=== PATIENT | female | born 1990 | race Caucasian/White ===

== ENCOUNTER 2019-04-25 11:35 | Emergency (ER) | payer OTHER, SELFPAY ==
[2019-04-25 11:36] VITALS: BP 166/121; PULSE 113; RESP 16; TEMP 36.7; O2SAT 98; BMI 38.7
--- NOTE | 2019-04-25 12:53 | ED.VIS.UPPEX ---
History of Present Illness Chief Complaint: Laceration Informant: Patient Occurred: Today - JPTA Mechanism/Context: Incised - accidentally w/ kitchen knife; dropped it and it cut her in the right small finger Timing: Continuous Quality of Pain: Throbbing Location: R little finger Current Severity: Mild Maximum Severity: Mild Worsened by: palpation/moving Relieved by: remaining still Associated Symptoms: Negative for: Parasthesia, Weakness, Loss of Funtion Narrative: Ejyko-[id number]-[id number]. Last tetanus unknown. Tetanus Immunization: Unknown Past Medical History - Allergies and Home Meds Allergies/Adverse Reactions: Allergies No Known Allergies Allergy (Verified 04/25/19 11:37) Primary Care Physician: Carmen Ramirez PA [Primary Care Provider] - Past Medical History: None Lives: With Family Smoking Status: Current every day smoker Review of Systems Musculoskeletal: Reports: Extremity Pain. Denies: Swelling Skin: Reports: Wounds. Denies: Rash Neurological: Denies: Weakness, Numbness Physical Exam Vital Signs/Narrative: Vital Signs Temp Pulse Resp BP Pulse Ox 04/25/19 11:36 98.1 F 113 H 16 166/121 H 98 General: Well nourished, Well developed Head: Normocephalic, Atraumatic Extremeties: Full range of motion of the right small finger, no other signs of trauma. No bony tenderness. FDS, FDP, extensor intact. Skin: Normal color, No rash, Trauma - 2 cm laceration across the dorsum of the right little finger and onto the ulnar aspect, just proximal to the PIPJ. No tendon exposed. Clean appearing, irregular. Neurological: Alert, Oriented x3, Cranial nerves II-XII grossly intact, Normal Strength, Normal Sensation, Normal Gait Psychological: Normal affect, Normal Mood Diagnostic/Tx/Re-eval - Medical Decision Making Laceration was repaired and cleansed thoroughly. Sutures out in approximately 10 days. Procedures - Lacerations Right small finger Length: 2 cm Depth: Sub Q Shape: Linear - Irregular Prep: Sterile Conditions, Chlorhexadine Laceration repair: Irrigated, Local - 1 cc 1% lidocaine plain, Skin sutures Irrigated (ml): 40 Number of Sutures/[place]: 4 Suture Information: Ethilon, Simple, 5-0 Comment: Tolerated well. No complications. ED Disposition - Plan for ED Patient: Disposition: Home or Assisted Living Diagnosis: Laceration of right little finger w/o foreign body w/o damage to nail Instructions: LACERATION, Hand Referrals: Carmen Ramirez PA [Primary Care Provider] - 10-14 Days suture removal
[2019-04-25] MEDS: Ibuprofen 600 MG Tablet PO (13:04)
== END 2019-04-25 13:06 | disposition home or self-care (01) ==
PROVIDERS: Emergency Provider Emergency Medicine; Family Provider Physician Assistant; PCP Physician Assistant
DX: S61.216A Laceration without foreign body of right little finger without damage to nail, initial encounter (principal); F17.200 Nicotine dependence, unspecified, uncomplicated; W26.0XXA Contact with knife, initial encounter; Y93.89 Activity, other specified; Y92.000 Kitchen of unspecified non-institutional (private) residence as the place of occurrence of the external cause; Y99.8 Other external cause status
CPT/HCPCS: 12001; 99283

== ENCOUNTER 2019-08-20 22:51 | Emergency (ER) | payer OTHER, SELFPAY ==
[2019-08-20 22:52] VITALS: BP 130/74; PULSE 108; RESP 18; TEMP 37.2; O2SAT 99; BMI 36.8
--- NOTE | 2019-08-20 23:05 | ED.VISSUMM ---
- ER Visit Summary Date of Service: 08/20/19 Chief Complaint: Fever and cough History of Present Illness: The patient is a 29 F who presents with fever and cough that began today. Patient states her niece was recently diagnosed with influenza B. Patient states she has had fevers up to 103.2 at home today. Patient admits to some shortness of breath and a cough. Patient denies any sputum production. Patient admits to some nausea and vomiting. Patient admits to generalized myalgias. Patient also admits to a headache. Physical Examination: Vital signs are stable. Patient is afebrile here. Patient is in no acute distress. Oral mucosa is pink and moist. Oropharynx shows some mild postnasal drainage. Neck is supple. Trachea is midline. There is no JVD or lymphadenopathy. Heart was regular rate and rhythm. Lungs are clear and equal bilaterally. Abdomen is soft. Bowel sounds are normal. There is no tenderness. Cranial nerves II through XII are intact. There are no focal motor or sensory deficits noted. Test Results: Influenza swab was obtained and was negative. Emergency Department Course and Treatment: Patient was advised of her results. Patient was instructed to take plenty of fluids. Patient was instructed to continue Tylenol and ibuprofen as needed for any fevers or aches. Patient was instructed to use [id number] decongestants as needed. Patient was instructed to follow-up with her primary care physician in 5 to 7 days. Patient understood and was agreeable with the plan. All questions were answered. Disposition: Discharge home Impression: Viral upper respiratory infection This note was generated with [employer] dictation software. It may contain incorrect words, spelling, and punctuation that were not noted in review of the chart prior to signing ED Disposition - Plan for ED Patient: Disposition: Home or Assisted Living Diagnosis: Viral upper respiratory infection Instructions: URI, Viral, No Abx (Adult) Referrals: Carmen Ramirez PA [Primary Care Provider] - 5-7 Days
== END 2019-08-21 00:08 | disposition home or self-care (01) ==
PROVIDERS: Emergency Provider Emergency Medicine; PCP Physician Assistant
DX: J06.9 Acute upper respiratory infection, unspecified (principal); Z72.0 Tobacco use
CPT/HCPCS: 87804; 99282

== ENCOUNTER 2021-07-18 02:10 | Emergency (ER) | payer OTHER, SELFPAY ==
[2021-07-18 02:13] VITALS: BP 125/68; PULSE 69; RESP 17; TEMP 36.9; O2SAT 98; BMI 37.5
--- NOTE | 2021-07-18 02:18 | EDS_ITS ---
HPI History of Present Illness Chief Complaint: Flank Pain [facility] Medical History Abnormal Pap smear of cervix Endometriosis Right-sided back pain Home Medications ibuprofen 400 mg tablet 800 mg (2 x 400 mg) PO Q8H PRN PRN Pain ##30 02/19/17 [Rx Last Taken Unknown] oxycodone-acetaminophen 5 mg-325 mg tablet 1 tab PO Q6H PRN PRN Pain 3 days #12 TABLETS 07/19/21 [Rx Last Taken Unknown] Allergy/AdvReac Type Severity Reaction Status Date / Time No Known Allergies Allergy Verified 08/28/23 11:20 Surgical History H/O dilation and curettage Previous section S/P laparoscopic assisted vaginal hysterectomy (LAVH) Social History Smoking Status: Current every day smoker tobacco type: e-cigarettes EXAM Physical Exam Const Vital Signs: 07/18/21 02:13 07/18/21 05:16 07/18/21 07:41 Temperature 98.5 F Temperature Source Temporal Pulse Rate 69 78 67 Respiratory Rate 17 18 Blood Pressure 125/68 H 142/78 H 113/70 Blood Pressure Mean 87 99 84 Pulse Ox 98 98 97 Oxygen Delivery Method Room Air Room Air [facility] Lab Data Labs: Laboratory Results - last 24 hr 07/18/21 07/18/21 07/18/21 02:20 02:32 02:32 WBC 10.4 RBC 4.55 Hgb 13.7 Hct 40.0 MCV 87.9 MCH 30.1 MCHC 34.3 RDW Std Deviation 40.4 RDW Coeff of Chaparrita 12.5 Plt Count 312 MPV 9.7 Immature Gran % (Auto) 0.200 Neut % (Auto) 58.9 Lymph % (Auto) 31.2 [place] % (Auto) 6.7 Eos % (Auto) 2.0 Baso % (Auto) 1.0 Absolute Neuts (auto) 6.2 Absolute Lymphs (auto) 3.25 Nucleated RBC % 0 Sodium 136 Potassium 4.0 Chloride 106 Carbon Dioxide 23.0 Anion Gap 7 BUN 13 Creatinine 0.78 Estim Creat Clear Calc 78.13 Est GFR (MDRD) Af Amer 109 Est GFR (MDRD) Non-Af 90 BUN/Creatinine Ratio 16.6 Glucose 122 H Calcium 8.8 Urine Color Yellow Urine Clarity Clear Urine pH 6.0 Ur Specific [place] 1.025 Urine Protein 15 H Urine Glucose (UA) 250 H Urine Ketones Negative Urine Occult Blood Negative Urine Nitrite Negative Urine Bilirubin Negative Urine Urobilinogen Normal Ur Leukocyte Esterase Negative Urine RBC 0 SEEN Urine WBC 0 SEEN Ur Squamous Epith Cells 0-5 SEEN Urine Bacteria 1+ Urine Mucus 1+ Radiography Diagnostic Testing: Clinical Impression(s) from Imaging Studies Abdomen/Pelvis CT 07/18/21 02:18 IMPRESSION: Enlarged right adnexa is suspicious for ovarian torsion. Electronically Signed: Rajiv Rodrigues MD at 3:12 EST , ADDENDUM: 07/18/21 0348 IMPRESSION: Enlarged right adnexa is suspicious for ovarian torsion. N.B. : The above Results were Read Back by Rajiv Rodrigues MD to Rashad Varghese MD, and understanding confirmed on 07/18/2021 03:41:18 (ET). Electronically Signed: Rajiv Rodrigues MD at 3:12 EST , Transvaginal US 07/18/21 03:12 IMPRESSION: The patient is status post hysterectomy. There is no evidence of ovarian torsion. Electronically Signed: Filiberto Barker MD at 8:17 EST , Abdomen/Pelvis CT 07/18/21 07:55 IMPRESSION: The right ovary measures 4.4 cm x 2.8 cm. No mass lesion is seen. The patient is status post hysterectomy. Electronically Signed: Filiberto Barker MD at 8:44 EST , Discharge Plan Triage Chief Complaint: Flank Pain ED Provider: Rashad Canales Dx/Rx/DC Orders Clinical Impression: Back pain Instructions: ED Flank Pain, Uncertain Cause Prescriptions: No Action ibuprofen 400 MG tablet 800 mg PO Q8H PRN PRN (Reason: Pain) Qty: 30 0RF oxycodone-acetaminophen 1 TABLET tablet 1 tab PO Q6H PRN PRN (Reason: Pain) 3 Days Qty: 12 0RF Primary Care Provider: Carmen Ramirez Referrals: Tristen Cantu MD [Non-Staff] - As soon as possible Carmen Ramirez, PA [Primary Care Provider] - Disposition Disposition: Home, Self Care Discharge Date/Time: 07/18/21 09:58
--- NOTE | 2021-07-18 02:18 | CT_ITS ---
We are attempting to reach an attending provider to discuss findings. An addendum with communication details will be sent when the communication is complete. STUDY: CT ABDOMEN AND PELVIS WITHOUT CONTRAST REASON FOR EXAM: Female, 30 years old. Pain RADIATION DOSAGE (If Supplied By Facility): CTDIvol = ( 11.48 ) mGy, DLP = ( 561.96 ) mGycm TECHNIQUE: Transaxial images were obtained from the dome of the diaphragm to the symphysis pubis without oral contrast, and without intravenous contrast. Sagittal and coronal images were reconstructed. Individualized dose optimization techniques were used for this CT. COMPARISON: None. FINDINGS: The visualized lung bases are unremarkable. The visualized portions of the heart are within normal limits. Normal liver. Normal gallbladder and extrahepatic biliary system. Normal spleen. Normal pancreas. Normal bilateral adrenal glands. Normal right kidney. Normal left kidney. Normal visualized stomach. Normal small intestine. Normal colon. The appendix is visualized and appears normal. Normal abdominal aorta. Normal inferior vena cava. Normal retroperitoneum. Normal urinary bladder. 6.5 x 2.4 x 3.5 cm right adnexa. Uterus is not well seen. There is a small umbilical hernia containing fat. Normal thoracolumbar vertebral alignment. CT/Abdomen/Pelvis without Cont IMPRESSION: Enlarged right adnexa is suspicious for ovarian torsion. Electronically Signed: Rajiv Rodrigues MD at 3:12 EST ,
[2021-07-18] MEDS: 0.9% Normal Saline 1,000 ML 125 ML IV (02:34)
[2021-07-18] MEDS: Ondansetron 4 MG/2 ML Vial IV (02:34)
[2021-07-18] MEDS: Morphine 4 MG/ML Syringe IV ×3 (02:35→07:54)
[2021-07-18] MEDS: Ketorolac 30 MG/ML Syringe IV (02:35)
[2021-07-18 02:40] LABS: Red Blood Cells-Urine 0 SEEN /hpf (0-5); White Blood Cells 0 SEEN /hpf (0-5)
[2021-07-18 02:41] LABS: Absolute Lymphocyte Count 3.25 X10^3/uL (0.83-4.51); Absolute Neutrophil Count 6.2 X10^3/uL (2.0-7.7); Eosinophil# 0.21 X10^3/uL; Hemoglobin 13.7 g/dL (12.0-15.0); Lymphocyte # 3.25 X10^3/ul (0.83-4.51); Lymphocyte % 31.2 % (19-41); Mean Corp Hgb Conc 34.3 g/dL (32-36); Mean Corpuscular Hgb 30.1 pg (27.0-32.0); Mean Corpuscular Volume 87.9 fL (81-99); Mean Platelet Vol. 9.7 fl (6.2-12.0); Monocyte% 6.7 % (0-10); NRBC Flagged by Analyzer 0 % (0-5); Neutrophil # 6.15 X10^3/uL (2.7-7.7); Neutrophil % 58.9 % (47-70); Platelet Count 312 K/mm3 (150-450); RBC Distribution Width CV 12.5 % (11.6-14.6); RBC Distribution Width SD 40.4 fl (35.1-43.9); Red Blood Count 4.55 M/mm3 (4.2-5.4); White Blood Count 10.4 K/mm3 (4.4-11.0)
[2021-07-18 02:41] LABS: Color, Urine Yellow (Yellow); Glucose, Dipstick 250 mg/dl (Normal); Ketone-Dipstick Negative (Negative); Leukocyte Esterase-Dipstick Negative /ul (Negative); Nitrite-Dipstick Negative (Negative); Occult Blood-Urine Negative /ul (Negative); Protein-Dipstick 15 mg/dl (Negative); Specific Gravity, Urine 1.025 (1.002-1.030); Urine Bilirubin Dipstick Negative (Negative); Urine Clarity Clear (Clear); Urine Urobilinogen Normal (Normal)
[2021-07-18 02:48] LABS: Bacteria 1+ /hpf (None Seen); Mucous, Urine 1+ /hpf (<or=2+); Squamous Epithelial Cells - UA 0-5 SEEN /hpf (5-10)
[2021-07-18 02:55] LABS: Anion Gap 7 (5-15); BUN 13 mg/dL (7-18); BUN/Creat Ratio 16.6 RATIO (10-20); Calcium,Total 8.8 mg/dL (8.5-10.1); Chloride 106 mmol/L (98-107); Creatinine, Serum 0.78 mg/dL (0.55-1.02); EST Glomerular Filtration Rate 90 mL/min (>60); Est Glom Filt Rate - Afr Amer 109 mL/min (>60); Estimated Creatinine Clearance 78.13 ml/min; Glucose 122 mg/dL (74-106); Sodium Level 136 mmol/L (136-145)
--- NOTE | 2021-07-18 03:12 | US_ITS ---
STUDY: ULTRASOUND OF THE FEMALE PELVIS - COMPLETE REASON FOR EXAM: Female, 30 years old. Flank pain -- rule out ovarian torsion LMP: The patient is status post hysterectomy. TECHNIQUE: Transvaginal TECHNICAL QUALITY: Adequate. COMPARISON: None. FINDINGS: The patient is status post hysterectomy. The right ovary is visualized. The right ovary measures 4.7 cm x 4.4 cm x 2.3 cm. There is no right ovarian cyst or ovarian mass. There is no visualized right adnexal mass or complex lesion. There is normal arterial and normal venous vascularity. The left ovary is visualized. The left ovary measures 3.7 cm x 3.2 cm x 2.4 cm. There is no left ovarian cyst or ovarian mass. There is no visualized left adnexal mass or complex lesion. There is normal arterial and normal venous vascularity. There is no fluid in the cul-de-sac. US/Transvaginal Non- IMPRESSION: The patient is status post hysterectomy. There is no evidence of ovarian torsion. Electronically Signed: Filiberto Barker MD at 8:17 EST ,
[2021-07-18 05:16] VITALS: BP 142/78; PULSE 78; O2SAT 98
--- NOTE | 2021-07-18 07:08 | PN.OBGYN_ITS ---
Objective Data Objective Data Vital Signs: Vital Signs Temp Pulse Resp BP Pulse Ox 98.5 F 78 17 142/78 H 98 07/18/21 02:13 07/18/21 05:16 07/18/21 02:13 07/18/21 05:16 07/18/21 05:16 Oxygen Delivery Method Room Air Weight: 198 lb 13.711 oz Body Mass Index (BMI) 37.5 Lab / Micro Data Result Diagrams: 07/18/21 02:32 07/18/21 02:32 Labs: Laboratory Results - last 24 hr 07/18/21 02:20: Urine Color Yellow, Urine Clarity Clear, Urine pH 6.0, Ur Specific [place] 1.025, Urine Protein 15 H, Urine Glucose (UA) 250 H, Urine Ketones Negative, Urine Occult Blood Negative, Urine Nitrite Negative, Urine Bilirubin Negative, Urine Urobilinogen Normal, Ur Leukocyte Esterase Negative, Urine RBC 0 SEEN, Urine WBC 0 SEEN, Ur Squamous Epith Cells 0-5 SEEN, Urine Kourtney teria 1+, Urine Mucus 1+ 07/18/21 02:32: WBC 10.4, RBC 4.55, Hgb 13.7, Hct 40.0, MCV 87.9, MCH 30.1, MCHC 34.3, RDW Std Deviation 40.4, RDW Coeff of Chaparrita 12.5, Plt Count 312, MPV 9.7, Immature Gran % (Auto) 0.200, Neut % (Auto) 58.9, Lymph % (Auto) 31.2, [place] % (Auto) 6.7, Eos % (Auto) 2.0, Baso % (Auto) 1.0, Absolute Neuts (auto) 6.2, Absolute Lymphs (auto) 3.25, Nucleated RBC % 0 07/18/21 02:32: Sodium 136, Potassium 4.0, Chloride 106, Carbon Dioxide 23.0, Anion Gap 7, BUN 13, Creatinine 0.78, Estim Creat Clear Calc 78.13, Est GFR (MDRD) Af Amer 109, Est GFR (MDRD) Non-Af 90, BUN/Creatinine Ratio 16.6, Glucose 122 H, Calcium 8.8 Micro: Microbiology 07/18/21 06:22 Nasal Secretion SARS-CoV-2 Antigen (Rapid) - Final Radiography Diagnostic Testing: Radiology Impression Abdomen/Pelvis CT 07/18/21 02:18 IMPRESSION: Enlarged right adnexa is suspicious for ovarian torsion. Electronically Signed: Rajiv Rodrigues MD at 3:12 EST , ADDENDUM: 07/18/21 0348 IMPRESSION: Enlarged right adnexa is suspicious for ovarian torsion. N.B. : The above Results were Read Back by Rajiv Rodrigues MD to Rashad Varghese MD, and understanding confirmed on 07/18/2021 03:41:18 (ET). Electronically Signed: Rajiv Rodrigues MD at 3:12 EST , Assessment & Plan (1) Right-sided back pain: QUALIFIERS: Chronicity: acute Sciatica presence: without sciatica PLAN: opened in error - please see H&P
--- NOTE | 2021-07-18 07:14 | PCM.HP.STD ---
HPI - General HPI Narrative KIKI TOLEDO, is a 30 F who presents Patient presented to ED with right back pain that woke her from sleep. She thought she was passing a kidney stone as she had one in the past. She has nausea but no vomiting. Her pain is currently a 3 after medication but has been as bad as a 9/10. Also the nausea medication has helped. She currently points to an area in her mid lower back as the area of pain and also reports RLQ pain. Patient states she has always had some mild RLQ pain but this is more severe. She denies urinary concerns or fevers/chills. [facility] Medical History (Updated 07/18/21 @ 07:[address] Marck Varela MD) Abnormal Pap smear of cervix Endometriosis Right-sided back pain Home Medications ibuprofen 800 mg PO Q8H PRN PRN #30 tablet 02/19/17 [Rx Last Taken Unknown] Allergy/AdvReac Type Severity Reaction Status Date / Time No Known Allergies Allergy Verified 07/18/21 02:17 Surgical History (Updated 07/18/21 @ 07:[address] Marck Varela MD) H/O dilation and curettage Previous section S/P laparoscopic assisted vaginal hysterectomy (LAVH) Social History Smoking Status: Current every day smoker tobacco type: e-cigarettes Vital Signs Vital Signs Vital Signs: 07/18/21 02:13 07/18/21 05:16 Temperature 98.5 F Temperature Source Temporal Pulse Rate 69 78 Respiratory Rate 17 Blood Pressure 125/68 H 142/78 H Blood Pressure Mean 87 99 Pulse Ox 98 98 Oxygen Delivery Method Room Air Weight Weight: 198 lb 13.711 oz Body Mass Index (BMI) 37.5 Physical Exam Const alert, oriented x3 and no apparent distress HEENT head/scalp atraumatic Resp normal respiratory effort GI soft to palpation and non-distended GI Narrative: right mid to lower back and right lower quadrant mild tenderness, no rebound or guarding PELVIC: right adnexal tenderness (mild)with mass, no left adnexal tenderness or mass, uterus surgically absent Neuro CN's II-XII intact bilaterally Results Lab / Micro Data Result Diagrams: 07/18/21 02:32 07/18/21 02:32 Labs: Laboratory Results - last 24 hr 07/18/21 02:20: Urine Color Yellow, Urine Clarity Clear, Urine pH 6.0, Ur Specific [place] 1.025, Urine Protein 15 H, Urine Glucose (UA) 250 H, Urine Ketones Negative, Urine Occult Blood Negative, Urine Nitrite Negative, Urine Bilirubin Negative, Urine Urobilinogen Normal, Ur Leukocyte Esterase Negative, Urine RBC 0 SEEN, Urine WBC 0 SEEN, Ur Squamous Epith Cells 0-5 SEEN, Urine Bacteria 1+, Urine Mucus 1+ 07/18/21 02:32: WBC 10.4, RBC 4.55, Hgb 13.7, Hct 40.0, MCV 87.9, MCH 30.1, MCHC 34.3, RDW Std Deviation 40.4, RDW Coeff of Chaparrita 12.5, Plt Count 312, MPV 9.7, Immature Gran % (Auto) 0.200, Neut % (Auto) 58.9, Lymph % (Auto) 31.2, [place] % (Auto) 6.7, Eos % (Auto) 2.0, Baso % (Auto) 1.0, Absolute Neuts (auto) 6.2, Absolute Lymphs (auto) 3.25, Nucleated RBC % 0 07/18/21 02:32: Sodium 136, Potassium 4.0, Chloride 106, Carbon Dioxide 23.0, Anion Gap 7, BUN 13, Creatinine 0.78, Estim Creat Clear Calc 78.13, Est GFR (MDRD) Af Amer 109, Est GFR (MDRD) Non-Af 90, BUN/Creatinine Ratio 16.6, Glucose 122 H, Calcium 8.8 Micro: Microbiology 07/18/21 06:22 Nasal Secretion SARS-CoV-2 Antigen (Rapid) - Final Radiology Impression Abdomen/Pelvis CT 07/18/21 02:18 IMPRESSION: Enlarged right adnexa is suspicious for ovarian torsion. Electronically Signed: Rajiv Rodrigues MD at 3:12 EST , ADDENDUM: 07/18/21 3334 IMPRESSION: Enlarged right adnexa is suspicious for ovarian torsion. N.B. : The above Results were Read Back by Rajiv Rodrigues MD to Rashad Varghese MD, and understanding confirmed on 07/18/2021 03:41:18 (ET). Electronically Signed: Rajiv Rodrigues MD at 3:12 EST , Assessment & Plan Assessment/Plan (1) Right-sided back pain: QUALIFIERS: Chronicity: acute Sciatica presence: without sciatica PLAN: Concern for possible ovarian torsion on CT. Patient with mild tenderness on exam but no rebound/guarding. Pelvic US shows right ovary measuring just less than 5cm with normal blood flow on prelim read. Based on this information patient does not have evidence of ovarian torsion or gynecologic concern to proceed with surgery at this time. This was discussed with both (ED), the patient & (taking over [facility] ob/gyn doctor call). may further evaluate her pain in the ED. Patient is to update the office later today. Await final US read. COVID negative
[2021-07-18 07:41] VITALS: BP 113/70; PULSE 67; RESP 18; O2SAT 97
--- NOTE | 2021-07-18 07:55 | CT_ITS ---
STUDY: CT ABDOMEN AND PELVIS WITH CONTRAST REASON FOR EXAM: Female, 30 years old. Right flank pain RADIATION DOSAGE (If Supplied By Facility): CTDIvol = ( 13.98 ) mGy, DLP = ( 878.86 ) mGycm TECHNIQUE: Transaxial images were obtained from the dome of the diaphragm to the symphysis pubis without oral contrast. IV 100mL [id number]-[id number] was administered. Sagittal and coronal images were reconstructed. Individualized dose optimization techniques were used for this CT. COMPARISON: Comparison is made with prior examination done earlier today without intravenous contrast. FINDINGS: The visualized lung bases are unremarkable. The visualized portions of the heart are within normal limits. There is decreased attenuation of the liver consistent with steatosis. Normal gallbladder and extrahepatic biliary system. Normal spleen. Normal pancreas. Normal bilateral adrenal glands. Normal right kidney. Normal left kidney. Normal visualized stomach. Normal small intestine. Normal colon. The appendix is visualized and appears normal. Normal abdominal aorta. Normal inferior vena cava. Normal retroperitoneum. Normal urinary bladder. The right ovary measures 4.4 cm x 2.8 cm. The patient is status post hysterectomy. Normal abdominal wall. Normal osseous structures. CT/Abdomen/Pelvis W IV Cont ONLY IMPRESSION: The right ovary measures 4.4 cm x 2.8 cm. No mass lesion is seen. The patient is status post hysterectomy. Electronically Signed: Filiberto Barker MD at 8:44 EST ,
[2021-07-18 08:55] LABS: AST(SGOT) 22 U/L (15-37); Alanine Aminotransfer ALT/SGPT 33 U/L (13-56); Albumin, Serum 3.6 g/dL (3.2-5.0); Alkaline Phosphatase 63 U/L (45-117); Globulin 3.6 g/dL (2.2-4.2); Protein, Total 7.2 g/dL (6.4-8.2)
[2021-07-18 09:09] VITALS: BP 111/67; PULSE 53; RESP 13; O2SAT 99
[2021-07-18 09:57] VITALS: BP 160/56; PULSE 63; RESP 18
== END 2021-07-18 09:58 | disposition home or self-care (01) ==
PROVIDERS: Emergency Provider Emergency Medicine; PCP Physician Assistant; Visit Provider Emergency Medicine
DX: M54.9 Dorsalgia, unspecified (principal); R11.0 Nausea; F17.290 Nicotine dependence, other tobacco product, uncomplicated
CPT/HCPCS: 74176; 74177; 76830; 80048; 80076; 81001; 85025; 87426; 93976; 96374; 96375; 96376; 99283; J7030; Q9967; A4216; J2405

== ENCOUNTER 2021-07-19 10:45 | Day surgery (SDC) | payer OTHER, SELFPAY ==
[2021-07-19] VITALS (8 sets, daily range): BP systolic 92–146; BP diastolic 56–66; PULSE 63–96; RESP 14–18; TEMP 36.1–37.8; O2SAT 92–98; BMI 36.2
[2021-07-19] MEDS: Ondansetron 4 MG/2 ML Vial IV (11:15)
[2021-07-19] MEDS: HYDROmorphone 0.5 MG/0.5 ML SYRINGE IV (11:15)
[2021-07-19] MEDS: 0.9% Normal Saline 1,000 ML 1000 ML IV (11:16)
[2021-07-19 11:32] LABS: Absolute Neutrophil Count 10.9 X10^3/uL (2.0-7.7); Basophil# 0.07 X10^3/uL; Basophil% 0.5 % (0-1); Eosinophil# 0.14 X10^3/uL; Hematocrit 41.9 % (37-47); Hemoglobin 14.7 g/dL (12.0-15.0); Lymphocyte % 14.3 % (19-41); Mean Corp Hgb Conc 35.1 g/dL (32-36); Mean Corpuscular Hgb 31.3 pg (27.0-32.0); Mean Corpuscular Volume 89.3 fL (81-99); Mean Platelet Vol. 9.9 fl (6.2-12.0); Monocyte# 0.78 X10^3/uL; Monocyte% 5.6 % (0-10); NRBC Flagged by Analyzer 0 % (0-5); Neutrophil # 10.89 X10^3/uL (2.7-7.7); Neutrophil % 78.1 % (47-70); Platelet Count 322 K/mm3 (150-450); RBC Distribution Width CV 12.6 % (11.6-14.6); RBC Distribution Width SD 41.4 fl (35.1-43.9); Red Blood Count 4.69 M/mm3 (4.2-5.4)
[2021-07-19 11:44] LABS: AST(SGOT) 14 U/L (15-37); Alanine Aminotransfer ALT/SGPT 28 U/L (13-56); Albumin, Serum 3.6 g/dL (3.2-5.0); Alkaline Phosphatase 70 U/L (45-117); Anion Gap 4 (5-15); BUN 7 mg/dL (7-18); BUN/Creat Ratio 9.7 RATIO (10-20); Calcium,Total 8.7 mg/dL (8.5-10.1); Chloride 105 mmol/L (98-107); Creatinine, Serum 0.72 mg/dL (0.55-1.02); EST Glomerular Filtration Rate 99 mL/min (>60); Est Glom Filt Rate - Afr Amer 120 mL/min (>60); Estimated Creatinine Clearance 84.65 ml/min; Globulin 3.6 g/dL (2.2-4.2); Glucose 92 mg/dL (74-106); Potassium 3.9 mmol/L (3.5-5.1); Protein, Total 7.2 g/dL (6.4-8.2); Sodium Level 136 mmol/L (136-145)
--- NOTE | 2021-07-19 12:18 | ED.RN ---
Dr. Lopez in to see this patient.
--- NOTE | 2021-07-19 12:29 | EDS_ITS ---
HPI HPI - GI History of Present Illness Chief Complaint: Flank Pain Narrative Narrative: 30-year-old female presenting with acute onset right pelvic pain which has been intermittent for the last 24 hours. Patient was seen yesterday in the ED for evaluation initially thought this was a kidney stone. At that point she reports that she had flank pain on the right. Patient had urinalysis and blood work performed which was normal. She had a CT of the abdomen pelvis without contrast which showed concern for ovarian torsion. Transvaginal ultrasound was performed after this which was negative. Patient was evaluated by gynecology yesterday and it was felt that this was not a torsion. Patient subsequently had a CT of the abdomen pelvis with IV contrast. On both CAT scans the appendix was visualized and was normal. There were no other acute findings. Patient was discharged home. She returns today with pain that has been more persistent and in the right pelvis. She does admit that she has had some nausea and vomiting associated with this. She denies vaginal bleeding or vaginal complaints. Patient does state that she is status post partial hysterectomy. She has both ovaries. [facility] Medical History Abnormal Pap smear of cervix Endometriosis Right-sided back pain Home Medications ibuprofen 800 mg PO Q8H PRN PRN #30 tablet 02/19/17 [Rx Last Taken Unknown] oxycodone-acetaminophen 1 tab PO Q6H PRN PRN 3 Days #12 tablet 07/18/21 [Rx Last Taken Unknown] Allergy/AdvReac Type Severity Reaction Status Date / Time No Known Allergies Allergy Verified 07/19/21 10:49 Surgical History H/O dilation and curettage Previous section S/P laparoscopic assisted vaginal hysterectomy (LAVH) Social History Smoking Status: Current every day smoker tobacco type: e-cigarettes ROS ROS ED Constitutional Constitutional ED: Denies chills, fever(s) or sweats ENT ENT ED: Denies rhinorrhea or sore throat Cardiovascular Cardiovascular: Denies chest pain or palpitations Respiratory/Chest Respiratory/Chest: Denies cough or dyspnea Gastrointestinal Gastrointestinal: Reports abdominal pain, nausea and vomiting Genitourinary Genitourinary ED: Denies dysuria or hematuria Musculoskeletal Musculoskeletal: Denies arthralgias or myalgias Integumentary Denies rash Neurologic Neurologic: Denies headache(s) or weakness Psychiatric Psychiatric: Denies anxiety or depression EXAM Physical Exam Const Vital Signs: 07/19/21 10:46 07/19/21 11:11 Temperature 97.0 F L Temperature Source Temporal Pulse Rate 96 Respiratory Rate 14 Respiratory Effort Normal Blood Pressure 146/63 H Blood Pressure Mean 90 Pulse Ox 97 Oxygen Delivery Method Room Air Positive obese; Negative for well nourished Constitutional Narrative: Appears to be in pain General Appearance ED: NAD; Negative for pallor Nutritional Appearance: obese HEENT normocephalic and atraumatic Eyes PERRL and EOMs intact bilaterally Resp normal respiratory effort and clear to auscultation bilaterally Cardio regular rate and regular rhythm GI Palpation: tender RLQ Back/Spine no CVA tenderness Neuro Sensorium / Orientation: alert, oriented to person, oriented to place and oriented to time Psych mental status grossly normal and thought process normal Skin no wounds General Skin Exam: Negative for jaundice or pallor MDM MDM MDM Narrative Medical decision making narrative: Review the medical record supports patient's history. She is has been persistent pain in the right lower pelvis today. After reviewing the images and lab work I did repeat basic labs and today she does have a 14,000 white count. CMP within normal limits. Patient given Dilaudid and Zofran for pain. I have concern that she has had intermittent torsion and now the pain is persistent. Ultrasound is not in today and would need to be called in which would delay the patients care. I spoke with Dr. Walters who came to evaluate the patient at bedside in the ED. Currently the plan is to take the patient to the OR for laparotomy to rule out ovarian torsion. Impression: 1. Ovarian Torsion Lab Data Labs: Laboratory Results - last 24 hr 07/19/21 07/19/21 11:15 11:15 WBC 14.0 H RBC 4.69 Hgb 14.7 Hct 41.9 MCV 89.3 MCH 31.3 MCHC 35.1 RDW Std Deviation 41.4 RDW Coeff of Chaparrita 12.6 Plt Count 322 MPV 9.9 Immature Gran % (Auto) 0.500 Neut % (Auto) 78.1 H Lymph % (Auto) 14.3 L Mckenzie % (Auto) 5.6 Eos % (Auto) 1.0 Baso % (Auto) 0.5 Absolute Neuts (auto) 10.9 H Absolute Lymphs (auto) 2.00 Nucleated RBC % 0 Sodium 136 Potassium 3.9 Chloride 105 Carbon Dioxide 27.0 Anion Gap 4 L BUN 7 Creatinine 0.72 Estim Creat Clear Calc 84.65 Est GFR (MDRD) Af Amer 120 Est GFR (MDRD) Non-Af 99 BUN/Creatinine Ratio 9.7 L Glucose 92 Calcium 8.7 Total Bilirubin 0.50 AST 14 L ALT 28 Alkaline Phosphatase 70 Total Protein 7.2 Albumin 3.6 Globulin 3.6 Albumin/Globulin Ratio 1.0 Discharge Plan Triage Chief Complaint: Flank Pain ED Provider: Donnie Dalton Dx/Rx/DC Orders Prescriptions: No Action ibuprofen 400 MG tablet 800 mg PO Q8H PRN PRN (Reason: Pain) Qty: 30 RF: 0 oxycodone-acetaminophen [oxycodone-acetaminophen] 1 TABLET tablet 1 tab PO Q6H PRN PRN (Reason: Pain) 3 Days Qty: 12 RF: 0 Primary Care Provider: Carmen Ramirez
--- NOTE | 2021-07-19 12:31 | ED.RN ---
Mother, Negra, to be contacted following surgery, phone number [phone]
--- NOTE | 2021-07-19 12:33 | ED.RN ---
No covid test collected due to having negative test performed 2/4 in ED, Dr. Lopez confirmed unnecessary..
--- NOTE | 2021-07-19 12:33 | PCM.HP.BLA ---
History and Physical Date of Admission: 07/19/21 Tri is a [id number] fema who presented with 2 days of intermittent sharp right lower quadrant pain. It began out of the blue on grain blender of 07/18/2021. She arrived to the emergency room and was evaluated by CAT scan. She was shown to have an enlarged right ovary. She then was evaluated by Dr. Varela felt her pain was mild to moderate and did not indicate torsion. She had a pelvic ultrasound that showed flow to both ovaries. The patient was discharged home and arrived back this morning complaining of intermittent crescendoing and decrescendo in pain. Is worse when she stands up. Is not worse after she eats. She does not have an appetite. She denies any nausea vomiting or diarrhea. She denies any fevers or chills. She denies any hematuria. Patient states she is never had pain quite like this before. She is status post hysterectomy approximately 4-1/2 years ago. Both ovaries remain. Past medical history is significant for abnormal Pap smears. Past surgical history significant for D&Cs for miscarriages, 3 sections, and an laparoscopic-assisted vaginal hysterectomy Social history positive for tobacco use Allergies no known drug allergies Physical exam: See vitals Awake, alert, no acute distress but does appear to be in pain with straining her abdominal muscles to sit up. Skin is warm dry and intact Lungs clear to auscultation bilaterally Heart S1-S2 regular rate and rhythm Abdomen soft, nondistended, no masses, some rebound and guarding in the right lower quadrant. No CVA or flank tenderness. COMFORT STATION ATTENDANT exam: Normal external genitalia, normal introitus. Vagina is normal length with normal rugae and cuff is intact. There is a fullness against the vaginal cuff on the right side that is exquisitely tender. CT scans and ultrasound from yesterday were reviewed. Labs are reviewed. Assessment & Plan Assessment/Plan (1) Right lower quadrant pain: PLAN: Though the pelvic ultrasound yesterday showed both blood flow to both ovaries, clinically suspicious for right ovarian torsion. Risk benefits alternatives to diagnostic laparoscopy with reversal of torsion or possible right oophorectomy were discussed with the patient, questions were answered to her satisfaction she desires to proceed. Understands I do not see any source of pain will evaluate appendix and though CT was negative, will double check this in surgery. Patient's questions were answered to her satisfaction she desires to proceed. (2) Torsion of right ovary:
--- NOTE | 2021-07-19 13:30 | OV_PTH ---
PATIENT: KIKI TOLEDO [place] [facility] [place][id number] AGE/SX: 30/F ROOM: RE07/19/[address]: Dr. Barbara Walters MD : 1990 BED: DIS: 07/19/2021 SPEC #: [id number] RECD: 07/21/21 07:21 STATUS: ESMER EDMONDS #: [id number] FADY: 07/19/21 13:[address]: Barbara Walters DEPT: SURGICAL PATHOLOGY RECD BY: Ruth Cooper ENTERED: 07/21/21 07:56 SP TYPE: OVARY OTHR DR: STANLEY Correia Tissues: Right ovary Procedures: Surgery Specimen Level IV HEADER OPERATION: Right oophorectomy PRE-OP DIAGNOSIS: Right lower quadrant pain, right ovarian torsion TISSUE SUBMITTED: Right ovary MICROSCOPIC DIAGNOSIS Right ovary, oophorectomy: Ovary with extensive hemorrhage, consistent with clinical diagnosis of ovarian torsion. SJ:eveline 07/22/2021 MICROSCOPIC DESCRIPTION Slides are reviewed. GROSS DESCRIPTION Received in fixative is one container labeled with the patient's name and designated right ovary. The specimen consists of a previously, partially opened hemorrhagic ovary and detached blood clots weighing 45.5 gm. The ovary measures 6 x 5 x 4 cm and detached blood clots measure in aggregate 3 x 2 x 1 cm. Sections reveal hemorrhagic cut surfaces. No mass lesion is identified. Servicenow Administrator sections are submitted in four cassettes. / SJ:eveline 07/21/2021 TC:5 CPT: 73699
[2021-07-19] MEDS: Bupivacaine Mpf 0.5% 30 ML VIAL (14:30)
--- NOTE | 2021-07-19 14:31 | PCM.OPRPT ---
Problems Associated Problem List Diagnoses (1) Torsion of right ovary: (2) Right lower quadrant pain: Report of Operation Date of Procedure: 07/19/21 Pre-Operative Diagnosis: RLQ pain, right ovarian torsion Post-Operative Diagnosis: same Surgery/Procedure Performed:: Laparoscopic right oophorectomy Description of Surgical Findings:: enlarged hemorrhagic right ovary torsed on pedicle once, normal-appearing appendix, left ovary and remainder of peritoneal cavity. Surgeon: Barbara Walters marketing communications leader: Madelaine Vargas Type of Anesthesia: General Anesthesiologist: Kim Garcia Special Medications: none Specimen's removed: right ovary Drains: non Estimated Blood Loss (mL): 30 Fluids Replaced: 1000 Description of Procedure: The patient was taken to the operating room where she was prepped and draped in the dorsolithotomy position. A sponge stick was placed in the vagina. Attention was turned to the abdomen. All port sites were infiltrated with 0.5% Marcaine before skin incisions were made. A 5 mm [intraumbilical] incision was made. The anterior abdominal wall was tented up with 2 towel clamps while a 5 mm blade less trocar and sleeve were [directly inserted]. Intraperitoneal placement was confirmed with the laparoscope. The pneumoperitoneum was created and the underlying abdominal contents were intact. The patient was placed in Trendelenburg. Right and left lower quadrant ports were placed under direct visualization lateral to the inferior epigastric vessels. The bowel was swept away and the above findings were noted. The right ovary is noted to be torsed on its pedicle, it was dark, hemorrhagic and engorged. It was untwisted and the pedicle was coagulated off. Decision was made to move the ovary. The LigaSure device was used to clamp, seal and transect the infundibulopelvic ligament. The ureter was identified and seen peristalsing well below the labeled level of the pedicle before this was performed. The pedicle was hemostatic. The umbilical port incision was extended with sharp and blunt dissection and the Endo Catch bag was placed through the port and the ovary was placed inside of it. The ovary was brought in the bag through the incision. The fascia was closed with an 0 Vicryl suture for the umbilical port only. Skin incisions were then closed by the SOCIAL AND POLITICAL STUDIES PROFESSOR with me present in the operating suite. The pedicles were again examined and found to be hemostatic. The lateral ports were removed under direct visualization and no active bleeding was noted. The pneumoperitoneum was released. The skin incisions were closed with skin glue. The vaginal instruments were removed and the vaginal sweep was completed by me. The procedure was performed by me with assistance other than as dictated above. All sponge and needle counts were correct and the patient was taken to the recovery room in stable condition. Specimen is right ovary. Grafts/Implants Used: none Procedure Start Time: 13:58 Procedure Stop Time: 14:36 Complications none Admit VTE Documentation VTE Present on Admission: No VTE Mechan Device Prophylaxis: None VTE Pharm Prophylaxis ordered?: No
--- NOTE | 2021-07-19 14:42 | PCM.DC ---
Discharge Instructions Diet Discharge Diet: No restrictions Activity May resume sexual activity in: 1 week Dressing / Incision Call your doctor if your incision/area has: Sudden Increased Bleeding and Foul Smelling Discharge Call your doctor if you observe: Fever of 101 or Higher Cleanse incision/area with: Soap & Water (Your incisions have skin glue and it can get wet. Leave on until it falls off) Follow Up Care Please Follow Up With: Barbara Walters MD When: In my office or virtual visit in 1-2 weeks or as needed Test Results: Test results from this visit will be discussed in further detail at your follow-up appointment, if applicable. Discharge Plan Admission Primary Reason for Your Visit: right ovarian torsion, surgical removal of right ovary Attending Provider: Barbara Walters Primary Care Provider: Carmen Ramirez Discharge Orders/Prescriptions Prescriptions: Continued ibuprofen 400 MG tablet 800 mg PO Q8H PRN PRN (Reason: Pain) Qty: 30 RF: 0 oxycodone-acetaminophen 1 TABLET tablet 1 tab PO Q6H PRN PRN (Reason: Pain) 3 Days Qty: 12 RF: 0 Referrals / Follow Up: Carmen Ramirez PA [Primary Care Provider] - Disposition Disposition (needs filled in before D/C Order can be placed): Home, Self Care
== END 2021-07-19 23:59 | disposition home or self-care (01) ==
LOC: ED 11:16 → SDC 13:15
PROVIDERS: Emergency Provider Student in an Organized Health Care Education/Training Program; PCP Physician Assistant; Visit Provider Obstetrics & Gynecology
PROC: (CPT 49320; principal; 2021-07-19 13:30)
DX: N83.511 Torsion of right ovary and ovarian pedicle (principal); F17.290 Nicotine dependence, other tobacco product, uncomplicated; E66.9 Obesity, unspecified; Z68.36 Body mass index [BMI] 36.0-36.9, adult; Z86.16 Personal history of COVID-19; Z79.899 Other long term (current) drug therapy
CPT/HCPCS: 58661; 00840; 80053; 85025; 88305; 99284; J7030; A4216; J2405

== ENCOUNTER 2023-08-28 11:19 | Emergency (ER) | payer OTHER, SELFPAY ==
[2023-08-28 11:20] VITALS: BP 136/94; PULSE 78; RESP 14; TEMP 36.8; O2SAT 97; BMI 43.7
--- NOTE | 2023-08-28 11:32 | RAD_ITS ---
STUDY: X-RAY CHEST REASON FOR EXAM: Female, 33 years old. chest pain TECHNIQUE: Single AP portable view of the chest. COMPARISON: None. FINDINGS: EKG leads overlie the chest The lungs are clear and expanded. There is no demonstrated pleural abnormality. Normal size heart. Normal mediastinum and oswaldo. Normal visualized pulmonary arteries. Normal visualized aortic arch and descending thoracic aorta. Normal visualized thoracic spine. Normal visualized ribs, clavicles, and shoulders. There is no demonstrated abnormality of the visualized soft tissue structures of the upper abdomen. RAD/Chest 1 View (Portable) IMPRESSION: Normal x-ray examination of the chest. Electronically Signed: Johnny Strange MD at 12:15 EDT ,
--- NOTE | 2023-08-28 11:34 | ED.VIS.CHEST ---
HPI <STANLEY Borrego - Last Filed: 08/28/23 12:26> History of Present Illness Chief Complaint: Chest Pain Narrative Narrative: 33-year-old female with PMH of anxiety presents with chest pain. She states earlier this week she had an episode of midsternal chest tightness that lasted 30 minutes and resolved. Today she woke up at 6 AM and has had constant chest tightness and achiness in the middle of her chest, both shoulders and upper back. She felt her heart beating strongly and both hands feel tingly. She also reports over the last month that after she wakes up she feels lightheaded for about 30 minutes. When she wakes up her extremities can feel numb?it usually in 1 arm or 1 leg and changes locations. She takes Zoloft and BuSpar and has had no recent changes. She vapes. She drinks 4 energy drinks a day. No cardiopulmonary history. No history of DVT/PE, leg pain or swelling, recent surgery or travel, cough or hemoptysis, or hormone use. PFSH <STANLEY Borrego - Last Filed: 08/28/23 12:26> PFSH Medical History Abnormal Pap smear of cervix Endometriosis Right-sided back pain Home Medications ibuprofen 400 mg tablet 800 mg (2 x 400 mg) PO Q8H PRN PRN Pain ##30 02/19/17 [Rx Last Taken Unknown] oxycodone-acetaminophen 5 mg-325 mg tablet 1 tab PO Q6H PRN PRN Pain 3 days #12 TABLETS 07/19/21 [Rx Last Taken Unknown] Allergy/AdvReac Type Severity Reaction Status Date / Time No Known Allergies Allergy Verified 08/28/23 11:20 Surgical History H/O dilation and curettage Previous section S/P laparoscopic assisted vaginal hysterectomy (LAVH) Social History Smoking Status: Current every day smoker tobacco type: e-cigarettes ROS <STANLEY Borrego - Last Filed: 08/28/23 12:26> ROS ED ROS Narrative Constitutional: Negative for fever, chills, malaise. CVS: Positive for palpitations, chest pain. Negative for syncope. Respiratory: Negative for shortness of breath, cough, orthopnea. GI: Negative for abdominal pain, nausea, vomiting. EXAM <STANLEY Borrego - Last Filed: 08/28/23 12:26> Physical Exam Narrative Exam Narrative: CONST: Patient sitting in no acute distress. EYES: Normal inspection. NECK: Normal inspection. RESP: No respiratory distress, CTAB. CVS: Regular rate and rhythm, no murmur, no gallop. ABD: Soft and nontender, no guarding or rebound, nondistended. SKIN: Color normal, no rash, warm, dry, intact. EXTREMITIES: Normal appearance, no pedal edema. NEURO: Oriented x4. PSYCH: Normal affect. Const Vital Signs: 08/28/23 11:20 08/28/23 12:18 Temperature 98.3 F 98.0 F Temperature Source Temporal Pulse Rate 78 70 Respiratory Rate 14 20 H Blood Pressure 136/94 H 109/50 L Blood Pressure Mean 108 69 Pulse Ox 97 98 Oxygen Delivery Method Room Air <Dr. Trevor Chirinos DO - Last Filed: 08/28/23 12:09> Physical Exam Const Vital Signs: 08/28/23 11:20 08/28/23 12:18 Temperature 98.3 F 98.0 F Temperature Source Temporal Pulse Rate 78 70 Respiratory Rate 14 20 H Blood Pressure 136/94 H 109/50 L Blood Pressure Mean 108 69 Pulse Ox 97 98 Oxygen Delivery Method Room Air <STANLEY Borrego - Last Filed: 08/28/23 12:26> Heart Score Score: 1 <Dr. Trevor Chirinos DO - Last Filed: 08/28/23 12:09> Heart Score History: Slightly/Non-Suspicious ECG: Normal Age: </= 45 years Risk Factors: 1 or 2 Risk Factors Troponin: </= Normal Limit Score: 1 MDM <STANLEY Borrego - Last Filed: 08/28/23 12:26> [facility] Lab Data Attestation: I reviewed the patient's lab results. Labs: Laboratory Results - last 24 hr 08/28/23 11:40 WBC 8.5 RBC 4.51 Hgb 13.1 Hct 38.8 MCV 86.0 MCH 29.0 MCHC 33.8 RDW Std Deviation 39.6 RDW Coeff of Chaparrita 12.7 Plt Count 293 MPV 9.7 Immature Gran % (Auto) 0.800 Neut % (Auto) 64.2 Lymph % (Auto) 26.0 Beckham % (Auto) 5.4 Eos % (Auto) 2.5 Baso % (Auto) 1.1 H Absolute Neuts (auto) 5.5 Absolute Lymphs (auto) 2.21 Nucleated RBC % 0 Sodium 139 Potassium 3.9 Chloride 110 H Carbon Dioxide 24.0 Anion Gap 5 BUN 11 Creatinine 0.79 Estim Creat Clear Calc 110.97 Est GFR (MDRD) Af Amer 106 Est GFR (MDRD) Non-Af 88 BUN/Creatinine Ratio 13.9 Glucose 103 Calcium 8.7 Troponin I High Sens < 3 L Radiography Diagnostic Testing: Clinical Impression(s) from Imaging Studies Chest X-Ray 08/28/23 11:32 IMPRESSION: Normal x-ray examination of the chest. Electronically Signed: Johnny Strange MD at 12:15 EDT Reading Location ID and State: [facility] , Service support , <Dr. Trevor Chirinos, DO - Last Filed: 08/28/23 12:09> [facility] Lab Data Labs: Laboratory Results - last 24 hr 08/28/23 11:40 WBC 8.5 RBC 4.51 Hgb 13.1 Hct 38.8 MCV 86.0 MCH 29.0 MCHC 33.8 RDW Std Deviation 39.6 RDW Coeff of Chaparrita 12.7 Plt Count 293 MPV 9.7 Immature Gran % (Auto) 0.800 Neut % (Auto) 64.2 Lymph % (Auto) 26.0 Beckham % (Auto) 5.4 Eos % (Auto) 2.5 Baso % (Auto) 1.1 H Absolute Neuts (auto) 5.5 Absolute Lymphs (auto) 2.21 Nucleated RBC % 0 Sodium 139 Potassium 3.9 Chloride 110 H Carbon Dioxide 24.0 Anion Gap 5 BUN 11 Creatinine 0.79 Estim Creat Clear Calc 110.97 Est GFR (MDRD) Af Amer 106 Est GFR (MDRD) Non-Af 88 BUN/Creatinine Ratio 13.9 Glucose 103 Calcium 8.7 Troponin I High Sens < 3 L Radiography Diagnostic Testing: Clinical Impression(s) from Imaging Studies Chest X-Ray 08/28/23 11:32 IMPRESSION: Normal x-ray examination of the chest. Electronically Signed: Johnny Strange MD at 12:15 EDT , EKG Initial EKG: Attestation: I personally reviewed and interpreted this EKG as follows: Interpretation: Sinus Rhythm (71) and No Acute Injury Pattern Comments: EKG was obtained. On my independent interpretation, it showed a normal sinus rhythm with a rate of 71. MN interval, QRS interval, and QTc intervals were all normal. Harrison was normal. There are no acute ST or T wave changes. Prior EKG tracings: not available for review Prior: No Prior Treatment and Re-Evaluation :: I have personally performed a face to face assessment of the patient and have reviewed the ERIC Note. I performed a substantive portion of the visit including all aspects of the following. My [place] findings include: History: Patient presents with chest pain and tingling in her arms. Patient states that her chest pain began today when she woke up. Patient states the pain woke her up out of her sleep. Patient states it has been intermittent throughout the day. Patient describes it as a tightness. Patient states it is over the substernal area. Patient admits to some tingling in her arms and hands. Patient admits to some shortness of breath and palpitations with this. Patient states she felt dizzy. Patient denies any fevers or chills. Exam: Vital signs are stable. Patient is afebrile. Patient is in no acute distress. Oral mucosa is pink and moist. Neck is supple. Trachea is midline. There is no JVD. Heart was regular rate and rhythm. Lungs are clear and equal bilaterally. Abdomen is soft. Bowel sounds are normal. There is no tenderness. Cranial nerves II through XII are intact. There are no focal motor or sensory deficits noted. Extremities are intact. There is no calf tenderness or edema noted. Medical Decision Making: Differential diagnosis includes cardiac dysrhythmia, cardiac ischemia, pneumonia, electrolyte abnormality, anemia, musculoskeletal pain, and anxiety. EKG will be obtained to assess for cardiac dysrhythmia and cardiac ischemia. Chest x-ray will be obtained to assess for pneumonia and pneumothorax. CBC will be obtained to assess for leukocytosis and anemia. Basic metabolic profile will be obtained to assess for electrolyte abnormality and renal function. High-sensitivity troponin will be obtained to assess for cardiac ischemia. EKG was obtained. On my independent interpretation, it shows normal sinus rhythm with rate of 71. There are no acute ST or T wave changes noted. CBC was reviewed and was within normal limits. Basic metabolic profile was reviewed and was within normal limits. High-sensitivity troponin was reviewed and was normal at less than 3. Portable 1 view chest x-ray was obtained. On my independent interpretation, lung weller are clear. There is normal cardiac silhouette. Bony thorax is normal. There is no acute process noted. Radiologist also interpreted the x-ray and agrees. Patient was advised of her findings. Patient was instructed to follow-up with her primary care physician in 5 to 7 days for further evaluation. Patient has a HEART score of 1. Patient was advised that this is low risk for acute cardiac event. Patient understood and was agreeable with the plan. All questions were answered. Discharge Plan Triage Chief Complaint: Chest Pain ED Midlevel Provider: Macrina Ambriz ED Provider: Trevor Chirinos Dx/Rx/DC Orders Clinical Impression: Chest pain of unknown etiology Instructions: ED Chest Pain, Uncertain Cause Prescriptions: No Action ibuprofen 400 MG tablet 800 mg PO Q8H PRN PRN (Reason: Pain) Qty: 30 0RF oxycodone-acetaminophen 1 TABLET tablet 1 tab PO Q6H PRN PRN (Reason: Pain) 3 Days Qty: 12 0RF Primary Care Provider: Tristen Cantu Referrals: Carmen Ramirez PA [Non-Staff] - Activity Restrictions/Additional Instructions: Your screening tests today are normal. Please follow-up with your primary care doctor. Disposition Disposition: Home, Self Care
[2023-08-28 11:51] LABS: Absolute Lymphocyte Count 2.21 X10^3/uL (0.83-4.51); Absolute Neutrophil Count 5.5 X10^3/uL (2.0-7.7); Basophil# 0.09 X10^3/uL; Basophil% 1.1 % (0-1); Eosinophil# 0.21 X10^3/uL; Eosinophils% 2.5 % (0-5); Hematocrit 38.8 % (37-47); Hemoglobin 13.1 g/dL (12.0-15.0); Lymphocyte # 2.21 X10^3/ul (0.83-4.51); Mean Corp Hgb Conc 33.8 g/dL (32-36); Mean Platelet Vol. 9.7 fl (6.2-12.0); Monocyte# 0.46 X10^3/uL; Monocyte% 5.4 % (0-10); NRBC Flagged by Analyzer 0 % (0-5); Neutrophil # 5.46 X10^3/uL (2.7-7.7); Neutrophil % 64.2 % (47-70); Platelet Count 293 K/mm3 (150-450); RBC Distribution Width CV 12.7 % (11.6-14.6); RBC Distribution Width SD 39.6 fl (35.1-43.9); Red Blood Count 4.51 M/mm3 (4.2-5.4); White Blood Count 8.5 K/mm3 (4.4-11.0)
[2023-08-28 12:05] LABS: Anion Gap 5 (5-15); BUN 11 mg/dL (7-18); BUN/Creat Ratio 13.9 RATIO (10-20); Calcium,Total 8.7 mg/dL (8.5-10.1); Chloride 110 mmol/L (98-107); Creatinine, Serum 0.79 mg/dL (0.55-1.02); EST Glomerular Filtration Rate 88 mL/min (>60); Est Glom Filt Rate - Afr Amer 106 mL/min (>60); Estimated Creatinine Clearance 110.97 ml/min; Glucose 103 mg/dL (74-106); Potassium 3.9 mmol/L (3.5-5.1); Sodium Level 139 mmol/L (136-145); Troponin-I HS < 3 pg/mL (3.0-54.0)
--- OUTSIDE RECORDS SUMMARY | 2023-08-28 12:12 | XMS RPT_ITS | CCD ---
Author Name Unknown Address [id number] [place] [address] Organization [facility] Care Team Providers [employer] Name Role Phone YOLANDA BAUM Attending Regis Serna MD Primary Care Provider REGIS BANUELOS Primary Care Unavailable ZAY ROMERO Attending Unavailable REGIS BANUELOS Primary Care Unavailable KALA MORRIS Attending Unavailable REGIS BANUELOS Primary Care Unavailable KALA MORRIS Attending Unavailable REGIS BANUELOS Attending Unavailable REGIS BANUELOS Primary Care Unavailable REGIS BANUELOS Attending Unavailable REGIS BANUELOS Primary Care Unavailable DARLY ROLON Referring Unavailable REGIS BANUELOS Primary Care Unavailable REGIS BANUELOS Primary Care Unavailable Medications Current Medications Medication Drug Class(es) Dates Sig (Normalized) Sig (Original) amoxicillin 875 mg / clavulanate 125 mg oral tablet (1 source) Penicillin-class Antibacterial Start: 02-08-2023 End: 02-13-2023 take 1 tablet by mouth twice daily amoxicillin-clav ulanic acid (AUGMENTIN) 875-125 mg per tablet Indications: Bacterial sinusitis , Sore throat Take 1 tablet by mouth twice daily for 5 days. 10 tablet 0 02/08/2023 02/13/2023 Active Completed/Discontinued Medications Medication Drug Class(es) Dates Sig (Normalized) Sig (Original) [id number] 200 actuat albuterol 0.09 mg/actuat metered dose inhaler (1 source) beta2-Adrenergic Agonist Start: 04-14-2023 take 2 puff(s) by inhalation every six hours as needed albuterol HFA (PROAIR HFA) 90 mcg/actuation inhaler Inhale 2 Puffs as instructed every 6 hours as needed. 1 Each 0 04/14/2023 Active Problems Active Problems Problem Classification Problem Date Documented Da te Episodic/Chronic Abdominal pain (1 source) Unspecified abdominal pain; Translations: [Unspecified abdominal pain] Onset: 08-21-2018 Episodic Anxiety disorders (11 sources) Mixed anxiety and depressive disorder; Translations: [Other specified anxiety disorders] Onset: 06-28-2017 Chronic Endometriosis (4 sources) Uterine adenomyosis; Translations: [Adenomyosis] Onset: 10-26-2016 10-26-2016 Chronic Genitourinary symptoms and ill-defined conditions (1 source) Hematuria, unspecified; Translations: [Hematuria, unspecified] Onset: 08-21-2018 Episodic Other female genital disorders (4 sources) Abnormal uterine bleeding; Translations: [Abnormal uterine and vaginal bleeding, unspecified] Onset: 10-16-2016 10-16-2016 Chronic Other female genital disorders (4 sources) Postcoital bleeding; Translations: [Postcoital and contact bleeding] Onset: 10-16-2016 10-16-2016 Chronic Other lower respiratory disease (1 source) Lower respiratory tract infection; Translations: [Unspecified acute lower respiratory infection] 04-14-2023 Episodic Other upper respiratory infections (1 source) Bacterial sinusitis; Translations: [Chronic sinusitis, unspecified] 02-08-2023 Chronic Other upper respiratory infections (1 source) Sore throat symptom; Translations: [Acute pharyngitis, unspecified] 02-08-2023 Episodic Past or Other Problems Problem Classification Problem Date Documented Da te Episodic/Chronic Cardiac dysrhythmias (4 sources) Palpitations; Translations: [Palpitations] Onset: 09-22-2017 09-22-2017 Episodic Chronic obstructive pulmonary disease and bronchiectasis (1 source) Bronchitis, not specified as acute or chronic; Translations: [Bronchitis] Onset: 04-14-2023 Episodic Results Test Name Value Interpretation Reference Range Facil ity Vital Signs Date Time Vital Sign Value Performing Clinician Eunice johnson 04-14-2023 15:39-0400 Body temperature 98.4 [degF] Daryl Rolon PA-C Work Phone: [facility] 04-14-2023 15:39-0400 Body weight 99.07 kg Daryl Athy PA-C Work Phone: [facility] 04-14-2023 15:39-0400 Diastolic blood pressure 62 mm[Hg] Daryl Athy PA-C Work Phone: [facility] 04-14-2023 15:39-0400 Heart rate 80 /min Daryl Athy PA-C Work Phone: [facility] 04-14-2023 15:39-0400 Respiratory rate 21 /min Daryl Athy PA-C Work Phone: [facility] 04-14-2023 15:39-0400 SaO2% (BldA) [Mass fraction] 98 % Daryl Athy PA-C Work Phone: [facility] 04-14-2023 15:39-0400 Systolic blood pressure 122 mm[Hg] Daryl Athy PA-C Work Phone: [facility] 02-08-2023 09:30-0400 Body temperature 98.6 [degF] Zay Romero DIRECTOR [employer] Work Phone: [facility] 02-08-2023 09:30-0400 Diastolic blood pressure 64 mm[Hg] Zay Romero DIRECTOR [employer] Work Phone: [facility] 02-08-2023 09:30-0400 Heart rate 68 /min Zay Romero DIRECTOR [employer] Work Phone: [facility] 02-08-2023 09:30-0400 Respiratory rate 14 /min Zay Romero DIRECTOR AUT[employer] Work Phone: [facility] 02-08-2023 09:30-0400 SaO2% (BldA) [Mass fraction] 98 % Zay Romero DIRECTOR AUT[employer] Work Phone: [facility] 02-08-2023 09:30-0400 Systolic blood pressure 110 mm[Hg] Zay Romero DIRECTOR AUT[employer]ON[employer] Work Phone: [facility] Encounters Encounter Date Encounter Type Care Provider Facility Start: 07-29-2023 End: 07-29-2023 ambulatory REGIS BANUELOS Facility:[facility] Start: 07-29-2023 End: 07-29-2023 ambulatory Regis Banuelos MD Work Phone: [facility] Procedures Date Procedure Procedure Detail Performing Clinician Start: 02-08-2023 JUN Mark MOLECULAR (POC) Zay Romero DIRECTOR [employer] Work Phone: Plan of Treatment Date Care Activity Detail Author Start: 07-07-2028 Urine microalbumin profile [facility] Start: 02-09-2024 COVID-19 VACCINE (2 - Booster for Joshua series) COVID-19 VACCINE (2 - Booster for Joshua series) [facility] Immunizations Immunization Date Immunization Notes Care Provider Consuelo covington 01-24-2021 COVID-19 vaccine (JOSHUA) Kala Morris DIRECTOR [employer] Work Phone: [facility] 07-07-2018 tetanus toxoid, redu julia diphtheria toxoid, and acellular pertussis vaccine, adsorbed Kala Chris DIRECTOR AUTO[employer] Work Phone: [facility] 07-07-2018 influenza virus vacc ine, unspecified formulation Daryl Rolon PA-C Work Phone: [facility] Payers Date Payer Category Payer Private Health Insurance [facility] [id number] 2022-Present [phone] [address] [address] [place] [address] [facility] [id number] 2022 Unknown [id number] Social History Date Type Detail Facility Start: 05-28-2020 End: 02-08-2023 Tobacco smoking status NHIS Smokes tobacco daily [facility] History of tobacco use Cigarette Smoker C [facility] Start: 05-28-2020 End: 10-27-2022 Cigarettes smoked current (pack per day) - Reported 1 [facility] Start: 05-28-2020 End: 02-08-2023 Tobacco use and exposure Smokeless tobacco non-user [facility] Start: 07-17-2022 End: 06-25-2023 Alcohol intake Current non-drinker of alcohol (finding) [facility] Start: 06-27-2019 History SDOH Social Connections Phone 5 [facility] Start: 06-27-2019 History SDOH Social Connections [place] 1 [facility] Start: 06-27-2019 History SDOH Social Connections Membership 2 [facility] Start: 06-27-2019 History SDOH Physica l Activity DPW 3 [facility] Start: 06-27-2019 History SDOH Physica l Activity MPS 9 [facility] Start: 1990 Sex Assigned At Not on file C [facility] Start: 09-18-2022 End: 10-27-2022 Social connection and isolation panel [facility] Do you belong to any clubs or organizations such as religion groups, unions, fraternal or athletic groups, or school groups? No [facility] Are you now , , , , never or living with a partner? [facility] How often to you hav e a drink containing alcohol? Never [facility] How many standard dr inks containing alcohol do you have on a typical day? Patient does not drink [facility] Do you feel stress - tense, restless, nervous, or anxious, or unable to sleep at night because your mind is troubled all the time - these days [OSQ] Very much [facility] (I/We) worried wheth er (my/our) food would run out before (I/we) got money to buy more. Never true [facility] Clinical Notes 02-19-2012 to 07-29-2023 Regis Banuelos MD - 07/29/2023 3:40 PM Daryl Mohan PA-C - 04/14/2023 4:48 PM Zay Hodges APRN.SPONGE DIVER - 02/08/2023 9:29 AM Ronny Morris APRN.[employer]ONGE DIVER - 07/17/2022 8:32 AM EST Note Date & Type Note Facility 07-29-2023 Note HNO ID: [id number] Author: REGIS BANUELOS MD Service: ? Author Type: Physician Type: Progress Notes Filed: 07/29/2023 15:53 Note Text: Chief Complaint Patient presents with: Medication Follow-up HPI:This Team Access Model visit is a virtual encounter. It required patient-provider interaction for the medical decision making as documented below. Patient was offered a virtual/telemedicine appointment in lieu of an office visit due to recommendations to reduce patient exposure to COVID-19. Patient is aware of limitations of performing the visit without a face to face visit in the office setting and agrees. I have communicated my name and active licensure. The patient's identity and physical location were verified at the time of this visit. Either the patient or their legal product sales representative has been informed of the risks and benefits of -- and alternatives to -- treatment through a remote evaluation and consents to proceed with the evaluation remotely. Pt completing a virtual visit today for a follow up. Depression/NOBLE - At last visit pt wanted to discuss extreme anxiety that is affecter her job and talking with co-workers such as her boss. Pt reported her anxiety as paranoid, over thinking things having nightmares and thinking that extreme things or worse case scenario will happen. She felt crazy. Pt was started on Zoloft 50 mg once daily and Buspar was increased to 15 mg twice daily. She has improved a lot with the zoloft; less anxious. Still has difficulty late afternoon. Takes Buspar at 7 AM/PM; suggested taking second Buspar dose earlier in day. Past medical history, appointments, medications, allergies reviewed. Previous Medical History PAST MEDICAL HISTORY Diagnosis Date Abnormal glandular Papanicolaou smear of cervix 2003 Abn. Pap smear (cervix) Previous Surgical History PAST SURGICAL HISTORY Procedure Laterality Date DELIVERY ONLY 2005 , low cervical DELIVERY ONLY 2006 , low cervical DELIVERY ONLY 03/19/2011 , low transverse, with b.t.o. DILATION AND CURETTAGE DXAND/THER NONOBSTETRIC 12/23/2010 Dilation AND curettageX2 LAPAROSCOPY W/RMVL ADNEXAL STRUCTURES Right 07/19/2021 Right oophorectomy for torsion and pain LAPS W/VAG HYSTERECT 250 GM/ANDRMVL TUBEAND/OVARIES Bilateral 02/18/2017 [facility], bilateral salpingectomy [place] INCOMPLETE ANY TRIMESTER SURGICAL 11/27/2007 DANDC w/ suction Family History FAMILY HISTORY Problem Relation Age of Onset Emphysema Paternal Grandmother smoker Patient Allergies ALLERGIES No Known Allergies Current Medications Current Outpatient Medications on File Prior to Visit Medication Sig sertraline (ZOLOFT) 50 mg tablet Take 1 tablet by mouth once daily. busPIRone (BUSPAR) 15 mg tablet Take 1 tablet by mouth two times a day. fluticasone (FLONASE) 50 mcg/actuation nasal spray Use 2 Sprays in each nostril once daily. Rinse mouth after use. No current facility-administered medications on file prior to visit. Social History Social History Tobacco Use Smoking status: Every Day Packs/day: 1 Types: Cigarettes Smokeless tobacco: Never Vaping Use Vaping Use: Never used Substance Use Topics Alcohol use: No Drug use: No EXAM: LMP 01/27/2017 (Exact Date) Health Maintenance List Hepatitis B Vaccine(1 of 3 - 3-dose series) Never done Hepatitis C Screening Never done HPV Testing due on 2018 Pap Testing due on 10/16/2021 Influenza Vaccine(1) due on 02/12/2023 Covid-19 Vaccine(2 - season) due on 02/12/2023 Pneumococcal Vaccine(1 of 2 - PCV) due on 02/09/2024 DTaP,Tdap,Td Vaccine(2 - Td or Tdap) due on 07/07/2028 HIV Screening Completed HPV Vaccine Aged Out Data reviewed none ASSESSMENT/PLAN: 1. Depression with anxiety - ICD9: 300.4, ICD10: F41.8 Increase Zoloft to 100 mg daily Take second Buspar dose earlier in day She has appt with Dr Sun in 2 weeks - SERTRALINE 100 MG TABLET Follow up in 3 months I agree with the Chief Complaint, ROS, and Past Histories independently gathered by the clinical support manager and the remaining scribed note accurately describes my personal service to the patient. Regis Banuelos MD The documentation for this note was completed by Lora Moe Ma acting as scribe for Regis Banuelos MD. July 29, 2023 3:30 PM. Lora Moe Ma [facility] 07-29-2023 History of Present illness Narrative Chief Complaint Patient presents with: Medication Follow-up HPI:This Team Access Model visit is a virtual encounter. It required patient-provider interaction for the medical decision making as documented below. Patient was offered a virtual/telemedicine appointment in lieu of an office visit due to recommendations to reduce patient exposure to COVID-19. Patient is aware of limitations of performing the visit without a face to face visit in the office setting and agrees. I have communicated my name and active licensure. The patient's identity and physical location were verified at the time of this visit. Either the patient or their legal product sales representative has been informed of the risks and benefits of -- and alternatives to -- treatment through a remote evaluation and consents to proceed with the evaluation remotely. Pt completing a virtual visit today for a follow up. Depression/NOBLE - At last visit pt wanted to discuss extreme anxiety that is affecter her job and talking with co-workers such as her boss. Pt reported her anxiety as paranoid, over thinking things having nightmares and thinking that extreme things or worse case scenario will happen. She felt crazy. Pt was started on Zoloft 50 mg once daily and Buspar was increased to 15 mg twice daily. She has improved a lot with the zoloft; less anxious. Still has difficulty late afternoon. Takes Buspar at 7 AM/PM; suggested taking second Buspar dose earlier in day. Past medical history, appointments, medications, allergies reviewed. Previous Medical History PAST MEDICAL HISTORY Diagnosis Date Abnormal glandular Papanicolaou smear of cervix 2003 Abn. Pap smear (cervix) Previous Surgical History PAST SURGICAL HISTORY Procedure Laterality Date DELIVERY ONLY 2005 , low cervical DELIVERY ONLY 2006 , low cervical DELIVERY ONLY 03/19/2011 , low transverse, with b.t.o. DILATION & CURETTAGE DX&/THER NONOBSTETRIC 12/23/2010 Dilation & curettageX2 LAPAROSCOPY W/RMVL ADNEXAL STRUCTURES Right 07/19/2021 Right oophorectomy for torsion and pain LAPS W/VAG HYSTERECT 250 GM/&RMVL TUBE&/OVARIES Bilateral 02/18/2017 [facility], bilateral salpingectomy [place] INCOMPLETE ANY TRIMESTER SURGICAL 11/27/2007 D&C w/ suction Family History FAMILY HISTORY Problem Relation Age of Onset Emphysema Paternal Grandmother smoker Patient Allergies ALLERGIES No Known Allergies Current Medications Current Outpatient Medications on File Prior to Visit Medication Sig sertraline (ZOLOFT) 50 mg tablet Take 1 tablet by mouth once daily. busPIRone (BUSPAR) 15 mg tablet Take 1 tablet by mouth two times a day. fluticasone (FLONASE) 50 mcg/actuation nasal spray Use 2 Sprays in each nostril once daily. Rinse mouth after use. No current facility-administered medications on file prior to visit. Social History Social History Tobacco Use Smoking status: Every Day Packs/day: 1 Types: Cigarettes Smokeless tobacco: Never Vaping Use Vaping Use: Never used Substance Use Topics Alcohol use: No Drug use: No EXAM: LMP 01/27/2017 (Exact Date) Health Maintenance List Hepatitis B Vaccine(1 of 3 - 3-dose series) Never done Hepatitis C Screening Never done HPV Testing due on 2018 Pap Testing due on 10/16/2021 Influenza Vaccine(1) due on 02/12/2023 Covid-19 Vaccine(2 - season) due on 02/12/2023 Pneumococcal Vaccine(1 of 2 - PCV) due on 02/09/2024 DTaP,Tdap,Td Vaccine(2 - Td or Tdap) due on 07/07/2028 HIV Screening Completed HPV Vaccine Aged Out Data reviewed none ASSESSMENT/PLAN: 1. Depression with anxiety - ICD9: 300.4, ICD10: F41.8 Increase Zoloft to 100 mg daily Take second Buspar dose earlier in day She has appt with Dr Sun in 2 weeks - SERTRALINE 100 MG TABLET Follow up in 3 months I agree with the Chief Complaint, ROS, and Past Histories independently gathered by the clinical support manager and the remaining scribed note accurately describes my personal service to the patient. Regis Banuelos MD The documentation for this note was completed by Lora Moe Ma acting as scribe for Regis Banuelos MD. July 29, 2023 3:30 PM. Lora Moe Ma documented in this encounter [facility] 06-25-2023 Note HNO ID: [id number] Author: REGIS BANUELOS MD Service: ? Author Type: Physician Type: Progress Notes Filed: 06/25/2023 17:05 Note Text: Chief Complaint Patient presents with: Medication Follow-up HPI: This Team Access Model visit is a virtual/phone encounter. It required patient-provider interaction for the medical decision making as documented below. Patient was offered a virtual/telemedicine appointment in lieu of an office visit due to recommendations to reduce patient exposure to COVID-19. Patient is aware of limitations of performing the visit without a face to face visit in the office setting and agrees. I have communicated my name and active licensure. The patient's identity and physical location were verified at the time of this visit. Either the patient or their legal product sales representative has been informed of the risks and benefits of -- and alternatives to -- treatment through a remote evaluation and consents to proceed with the evaluation remotely. Pt completing virtual visit for a medication follow up. Was last seen virtually in October. Was to follow up in 2 months. Depression/NOBLE: Pt no longer taking Wellbutrin 150 mg once daily for the past two months, but is currently still taking Buspar 10 mg 1 tab po bid. Wants to discuss changing dosage on medication due to extreme anxiety that is affecting her job and trying to talk to her boss. Pt describes her anxiety as paranoid, over thinking things, having nightmares, thinking extreme things will happen. An example given is her kids spill water on the floor and the floor will rot and they will fall through. Pt notes that she feels crazy. Pt uses [facility]. Past medical history, appointments, medications, allergies reviewed. Previous Medical History PAST MEDICAL HISTORY Diagnosis Date Abnormal glandular Papanicolaou smear of cervix 2003 Abn. Pap smear (cervix) Previous Surgical History PAST SURGICAL HISTORY Procedure Laterality Date DELIVERY ONLY 2006 , low cervical DELIVERY ONLY 2006 , low cervical DELIVERY ONLY 03/19/2011 , low transverse, with b.t.o. DILATION AND CURETTAGE DXAND/THER NONOBSTETRIC 12/23/2010 Dilation AND curettageX2 LAPAROSCOPY W/RMVL ADNEXAL STRUCTURES Right 07/19/2021 Right oophorectomy for torsion and pain LAPS W/VAG HYSTERECT 250 GM/ANDRMVL TUBEAND/OVARIES Bilateral 02/18/2017 [facility], bilateral salpingectomy [place] INCOMPLETE ANY TRIMESTER SURGICAL 11/27/2007 DANDC w/ suction Family History FAMILY HISTORY Problem Relation Age of Onset Emphysema Paternal Grandmother smoker Patient Allergies ALLERGIES No Known Allergies Current Medications Current Outpatient Medications on File Prior to Visit Medication Sig benzonatate (TESSALON PERLES) 100 mg capsule Take 2 capsules by mouth three times a day as needed. albuterol HFA (PROAIR HFA) 90 mcg/actuation inhaler Inhale 2 Puffs as instructed every 6 hours as needed. fluticasone (FLONASE) 50 mcg/actuation nasal spray Use 2 Sprays in each nostril once daily. Rinse mouth after use. busPIRone (BUSPAR) 10 mg tablet Take 1 tablet by mouth twice daily. (Patient not taking: Reported on 04/14/2023) buPROPion XL (WELLBUTRIN XL) 150 mg 24 hr tablet Take 1 tablet by mouth once daily. No current facility-administered medications on file prior to visit. Social History Social History Tobacco Use Smoking status: Every Day Packs/day: 1 Types: Cigarettes Smokeless tobacco: Never Vaping Use Vaping Use: Never used Substance Use Topics Alcohol use: No Drug use: No EXAM: LMP 01/27/2017 (Exact Date) Health Maintenance List Hepatitis B Vaccine(1 of 3 - 3-dose series) Never done Hepatitis C Screening Never done HPV Testing due on 2018 Pap Testing due on 10/16/2021 Influenza Vaccine(1) due on 02/12/2023 Covid-19 Vaccine(2 - 2022- season) due on 02/12/2023 Pneumococcal Vaccine(1 of 2 - PCV) due on 02/09/2024 DTaP,Tdap,Td Vaccine(2 - Td or Tdap) due on 07/07/2028 HIV Screening Completed HPV Vaccine Aged Out Data reviewed none ASSESSMENT/PLAN: 1. Depression with anxiety - ICD9: 300.4, ICD10: F41.8 Start zoloft 50 mg daily; increase buspar to 15 mg bid - SERTRALINE 50 MG TABLET - BUSPIRONE 15 MG TABLET Follow up in 1 month; virtual OK I agree with the Chief Complaint, ROS, and Past Histories independently gathered by the clinical support manager and the remaining scribed note accurately describes my personal service to the patient. Regis Banuelos MD The documentation for this note was completed by Lis Mcmanus Ma acting as scribe for Regis Banuelos MD. June 25, 2023 4:13 PM. Lis Mcmanus Ma [facility] 04-14-2023 Note HNO ID: [id number] Author: Daryl Rolon PASemaj Service: ? Author Type: Physician Contract Loader Type: Progress Notes Filed: 04/14/2023 5:07 PM Note Text: This note was created using [employer]. Subjective Kiki Salazar is a 32 year old female. HPI Patient presents with cough, congestion over the past 8 days. States it started off his nasal congestion and a sore throat with a fever. She has had fevers off and on since then. She has vomited and had some diarrhea as well. She states the cough seems to be worsening and she has had some pain in her chest when she coughs. Cough is sometimes productive. Home covid test negative. Review of Systems Constitutional: Positive for fatigue and fever. HENT: Positive for congestion, rhinorrhea and sore throat. Negative for ear pain. Respiratory: Positive for cough. Negative for shortness of breath. Cardiovascular: Positive for chest pain. Gastrointestinal: Positive for diarrhea, nausea and vomiting. Negative for abdominal pain. Genitourinary: Negative. Musculoskeletal: Positive for myalgias. Neurological: Positive for headaches. All other systems reviewed and are negative. PAST MEDICAL HISTORY Diagnosis Date Abnormal glandular Papanicolaou smear of cervix 2003 Abn. Pap smear (cervix) Current Outpatient Medications Medication Sig Dispense Refill fluticasone (FLONASE) 50 mcg/actuation nasal spray Use 2 Sprays in each nostril once daily. Rinse mouth after use. 1 Each 11 predniSONE (DELTASONE) 20 mg tablet Take 2 tablets by mouth once daily for 5 days. 10 tablet 0 benzonatate (TESSALON PERLES) 100 mg capsule Take 2 capsules by mouth three times a day as needed. 30 capsule 0 albuterol HFA (PROAIR HFA) 90 mcg/actuation inhaler Inhale 2 Puffs as instructed every 6 hours as needed. 1 Each 0 doxycycline (VIBRA-TABS) 100 mg tablet Take 1 tablet by mouth two times a day for 7 days. 14 tablet 0 busPIRone (BUSPAR) 10 mg tablet Take 1 tablet by mouth twice daily. (Patient not taking: Reported on 04/14/2023) 60 tablet 4 buPROPion XL (WELLBUTRIN XL) 150 mg 24 hr tablet Take 1 tablet by mouth once daily. 30 tablet 5 No current facility-administered medications for this visit. PAST SURGICAL HISTORY Procedure Laterality Date DELIVERY ONLY 2005 , low cervical DELIVERY ONLY 2006 , low cervical DELIVERY ONLY 03/19/2011 , low transverse, with b.t.o. DILATION AND CURETTAGE DXAND/THER NONOBSTETRIC 12/23/2010 Dilation AND curettageX2 LAPAROSCOPY W/RMVL ADNEXAL STRUCTURES Right 07/19/2021 Right oophorectomy for torsion and pain LAPS W/VAG HYSTERECT 250 GM/ANDRMVL TUBEAND/OVARIES Bilateral 02/18/2017 [facility], bilateral salpingectomy [place] INCOMPLETE ANY TRIMESTER SURGICAL 11/27/2007 DANDC w/ suction FAMILY HISTORY Problem Relation Age of Onset Emphysema Paternal Grandmother smoker Social History Tobacco Use Smoking status: Every Day Packs/day: 1 Types: Cigarettes Smokeless tobacco: Never Vaping Use Vaping Use: Never used Substance Use Topics Alcohol use: No Drug use: No Objective BP 122/62 Pulse 80 Temp 36.9 ?C (98.4 ?F) Resp 21 Wt 99.1 kg (218 lb 6.4 oz) LMP 01/27/2017 (Exact Date) SpO2 98% BMI 39.95 kg/m? Physical Exam Vitals reviewed. Constitutional: Appearance: Normal appearance. HENT: Head: Normocephalic and atraumatic. Right Ear: Tympanic membrane, ear canal and external ear normal. Left Ear: Tympanic membrane, ear canal and external ear normal. Nose: Congestion present. Mouth/Throat: Mouth: Mucous membranes are moist. Pharynx: Oropharynx is clear. Cardiovascular: Rate and Rhythm: Normal rate and regular rhythm. Heart sounds: Normal heart sounds. Pulmonary: Effort: Pulmonary effort is normal. Breath sounds: Normal breath sounds. Musculoskeletal: Cervical back: Neck supple. Skin: General: Skin is warm and dry. Neurological: Mental Status: She is alert. Assessment and Plan ASSESSMENT/PLAN: 1. Lower resp. tract infection - ICD9: 519.8, ICD10: J22 Chest x-ray shows possible pneumonia in the right lower lung. Will cover with doxycycline. Discussed follow-up with PCP in the next few weeks or sooner if worsening. Prednisone tessalon and albuterol also sent for symptoms. - XR CHEST 2V FRONTAL/LAT Daryl Rolon PA-C [facility] 04-14-2023 Note HNO ID: [id number] Author: Emilee Guevara RT(R) Service: ? Author Type: Validation Engineer Type: Progress Notes Filed: 04/14/2023 4:00 PM Note Text: Radiology Service Progress Note PATIENT NAME: Kiki Salazar DATE OF SERVICE: April 14, 2023 TIME: 3:51 PM PATIENT IDENTITY VERIFICATION COMPLETED USING TWO (2) IDENTIFIERS: Name and Date of confirmed by patient verbally. FALL SCREENING: Has the patient had 2 falls in the last year or 1 fall with injury or currently using an Ambulatory Assistive Device (Walker, Cane, Wheelchair, Crutches, etc.)? No PATIENT GENDER DATA: Female. status: : No status: NO. PATIENT RELEVANT IMPLANT DATA REVIEWED: Yes RADIOLOGY DEPARTMENT: General X-ray: Exam(s) Completed: Chest X-Ray PERIPHERAL IV DATA: Not applicable SIGNED BY: RT Cynthia(R) April 14, 2023 3:51 PM [facility] 04-14-2023 History of Present illness Narrative This note was created using [employer]. Subjective Kiki Salazar is a 32 year old female. HPI Patient presents with cough, congestion over the past 8 days. States it started off his nasal congestion and a sore throat with a fever. She has had fevers off and on since then. She has vomited and had some diarrhea as well. She states the cough seems to be worsening and she has had some pain in her chest when she coughs. Cough is sometimes productive. Home covid test negative. Review of Systems Constitutional: Positive for fatigue and fever. HENT: Positive for congestion, rhinorrhea and sore throat. Negative for ear pain. Respiratory: Positive for cough. Negative for shortness of breath. Cardiovascular: Positive for chest pain. Gastrointestinal: Positive for diarrhea, nausea and vomiting. Negative for abdominal pain. Genitourinary: Negative. Musculoskeletal: Positive for myalgias. Neurological: Positive for headaches. All other systems reviewed and are negative. PAST MEDICAL HISTORY Diagnosis Date Abnormal glandular Papanicolaou smear of cervix 2003 Abn. Pap smear (cervix) Current Outpatient Medications Medication Sig Dispense Refill fluticasone (FLONASE) 50 mcg/actuation nasal spray Use 2 Sprays in each nostril once daily. Rinse mouth after use. 1 Each 11 predniSONE (DELTASONE) 20 mg tablet Take 2 tablets by mouth once daily for 5 days. 10 tablet 0 benzonatate (TESSALON PERLES) 100 mg capsule Take 2 capsules by mouth three times a day as needed. 30 capsule 0 albuterol HFA (PROAIR HFA) 90 mcg/actuation inhaler Inhale 2 Puffs as instructed every 6 hours as needed. 1 Each 0 doxycycline (VIBRA-TABS) 100 mg tablet Take 1 tablet by mouth two times a day for 7 days. 14 tablet 0 busPIRone (BUSPAR) 10 mg tablet Take 1 tablet by mouth twice daily. (Patient not taking: Reported on 04/14/2023) 60 tablet 4 buPROPion XL (WELLBUTRIN XL) 150 mg 24 hr tablet Take 1 tablet by mouth once daily. 30 tablet 5 No current facility-administered medications for this visit. PAST SURGICAL HISTORY Procedure Laterality Date DELIVERY ONLY 2005 , low cervical DELIVERY ONLY 2006 , low cervical DELIVERY ONLY 03/19/2011 , low transverse, with b.t.o. DILATION & CURETTAGE DX&/THER NONOBSTETRIC 12/23/2010 Dilation & curettageX2 LAPAROSCOPY W/RMVL ADNEXAL STRUCTURES Right 07/19/2021 Right oophorectomy for torsion and pain LAPS W/VAG HYSTERECT 250 GM/&RMVL TUBE&/OVARIES Bilateral 02/18/2017 [facility], bilateral salpingectomy [place] INCOMPLETE ANY TRIMESTER SURGICAL 11/27/2007 D&C w/ suction FAMILY HISTORY Problem Relation Age of Onset Emphysema Paternal Grandmother smoker Social History Tobacco Use Smoking status: Every Day Packs/day: 1 Types: Cigarettes Smokeless tobacco: Never Vaping Use Vaping Use: Never used Substance Use Topics Alcohol use: No Drug use: No Objective BP 122/62 Pulse 80 Temp 36.9 C (98.4 F) Resp 21 Wt 99.1 kg (218 lb 6.4 oz) LMP 01/27/2017 (Exact Date) SpO2 98% BMI 39.95 kg/m Physical Exam Vitals reviewed. Constitutional: Appearance: Normal appearance. HENT: Head: Normocephalic and atraumatic. Right Ear: Tympanic membrane, ear canal and external ear normal. Left Ear: Tympanic membrane, ear canal and external ear normal. Nose: Congestion present. Mouth/Throat: Mouth: Mucous membranes are moist. Pharynx: Oropharynx is clear. Cardiovascular: Rate and Rhythm: Normal rate and regular rhythm. Heart sounds: Normal heart sounds. Pulmonary: Effort: Pulmonary effort is normal. Breath sounds: Normal breath sounds. Musculoskeletal: Cervical back: Neck supple. Skin: General: Skin is warm and dry. Neurological: Mental Status: She is alert. Assessment and Plan ASSESSMENT/PLAN: 1. Lower resp. tract infection - ICD9: 519.8, ICD10: J22 Chest x-ray shows possible pneumonia in the right lower lung. Will cover with doxycycline. Discussed follow-up with PCP in the next few weeks or sooner if worsening. Prednisone tessalon and albuterol also sent for symptoms. - XR CHEST 2V FRONTAL/LAT Daryl Rolon PA-C documented in this encounter [facility] 02-08-2023 Note HNO ID: [id number] Author: Zay Romero APRN.SPONGE DIVER Service: ? Author Type: Nurse Practitioner Type: Progress Notes Filed: 02/08/2023 9:55 AM Note Text: Chief Complaint Patient presents with: tonsiil swollen: Took at home covid test last Wednesday . Been sick for 4 weeks, looses voice, cough, sinus pressure, head ache , hard to hear, dizziness, had some vomiting one day , fever. HPI Kiki Salazar is a 32 year old female who presents here today for Above Complaints.. Kiki is an established patient of Dr. Alondra MD. She is a new patient to me today. Concerns today... Sinus pressure -- Sore throat, Sinus pressure, headache, and productive cough x 1 month. Sore throat is the worst symptom. Thought it was URI but not getting any better. Denies any SOB or difficulty breathing. Tested for COVID at home about 6 days ago and was negative. Past medical history, appointments, medications, allergies reviewed. Previous Medical History PAST MEDICAL HISTORY Diagnosis Date Abnormal glandular Papanicolaou smear of cervix 2003 Abn. Pap smear (cervix) Previous Surgical History PAST SURGICAL HISTORY Procedure Laterality Date DELIVERY ONLY 2005 , low cervical DELIVERY ONLY 2006 , low cervical DELIVERY ONLY 03/19/2011 , low transverse, with b.t.o. DILATION AND CURETTAGE DXAND/THER NONOBSTETRIC 12/23/2010 Dilation AND curettageX2 LAPAROSCOPY W/RMVL ADNEXAL STRUCTURES Right 07/19/2021 Right oophorectomy for torsion and pain LAPS W/VAG HYSTERECT 250 GM/ANDRMVL TUBEAND/OVARIES Bilateral 02/18/2017 [facility], bilateral salpingectomy [place] INCOMPLETE ANY TRIMESTER SURGICAL 11/27/2007 DANDC w/ suction Family History FAMILY HISTORY Problem Relation Age of Onset Emphysema Paternal Grandmother smoker Patient Allergies ALLERGIES No Known Allergies Current Medications Current Outpatient Medications on File Prior to Visit Medication Sig busPIRone (BUSPAR) 10 mg tablet Take 1 tablet by mouth twice daily. buPROPion XL (WELLBUTRIN XL) 150 mg 24 hr tablet Take 1 tablet by mouth once daily. fluticasone (FLONASE) 50 mcg/actuation nasal spray Use 2 Sprays in each nostril once daily. Rinse mouth after use. No current facility-administered medications on file prior to visit. Social History Social History Tobacco Use Smoking status: Every Day Packs/day: 1 Types: Cigarettes Smokeless tobacco: Never Vaping Use Vaping Use: Never used Substance Use Topics Alcohol use: No Drug use: No REVIEW OF SYSTEMS: as above Reviewed relevant PMHx, PSHx, Social Hx, current medications and allergies. Review of Symptoms REVIEW OF SYSTEMS See HPI. All other systems are negative. EXAM: BP 110/64 (BP Site: Left Arm, BP Position: Sitting, BP Cuff Size: Large Adult) Pulse 68 Temp 37 ?C (98.6 ?F) Resp 14 LMP 01/27/2017 (Exact Date) SpO2 98% General Appearance: Well appearing, alert, in no acute distress, well-hydrated, well nourished.. Skin: Skin color, texture, turgor normal, no suspicious rashes or lesions. Head: Normocephalic, no masses, lesions, tenderness or abnormalities. Eyes: Anicteric sclera. Pupils are equally round and reactive to light. Extraocular movements are intact. . Ears: External ears normal, canals clear. Nose/Sinuses: Nares normal, septum midline, mucosa normal, no drainage or sinus tenderness, Positive findings: clear rhinorrhea. Oropharynx: Lips, mucosa, and tongue normal, teeth and gums normal, oropharynx normal. Lungs: Lungs clear to auscultation. No wheezing, rhonchi, rales.. Heart: RRR without murmur, gallop, or rubs. No ectopy. Health Maintenance List HEPATITIS B(1 of 3 - 3-dose series) Never done HEPATITIS C SCREENING Never done HPV TESTING due on 2018 PAP TESTING due on 10/16/2021 COVID-19 VACCINE(2 - Booster for Joshua series) due on 02/09/2024 PNEUMOCOCCAL(1 - PCV) due on 02/09/2024 INFLUENZA(1) due on 02/12/2023 DTAP,TDAP,TD(2 - Td or Tdap) due on 07/07/2028 HIV SCREENING Completed HPV VACCINE Aged Out ASSESSMENT/PLAN: 1. Bacterial sinusitis - ICD9: 473.9, 041.9, ICD10: J32.9, B96.89 (primary diagnosis) - Will begin treatment with Augmentin 875 mg PO BID for 10 days - The patient should also be given OTC decongestants prn, OTC cough and cold meds as needed, warm salt water gargles, throat lozenges and/or OTC throat spray as needed, and nasal saline gtts and suction prn for the first 5-7 days of treatment. - Supportive care with plenty of fluids, rest, and analgesia prn. - Follow up in 3-5 days if symptoms persist or worsen. - AMOXICILLIN 875 MG-POTASSIUM CLAVULANATE 125 MG TABLET 2. Sore throat - ICD9: 462, ICD10: J02.9 - Rapid Strep negative in the office today - antibiotic as written - Discussed supportive care treatment with fluids, rest and analgesia. - Call back if drooling, increased temperature, symptoms of dehy (more content not included)... [facility] 02-08-2023 History of Present illness Narrative Chief Complaint Patient presents with: tonsiil swollen: Took at home covid test last Wednesday . Been sick for 4 weeks, looses voice, cough, sinus pressure, head ache , hard to hear, dizziness, had some vomiting one day , fever. HPI Kiki Salazar is a 32 year old female who presents here today for Above Complaints.. Kiki is an established patient of Dr. Alondra MD. She is a new patient to me today. Concerns today... Sinus pressure -- Sore throat, Sinus pressure, headache, and productive cough x 1 month. Sore throat is the worst symptom. Thought it was URI but not getting any better. Denies any SOB or difficulty breathing. Tested for COVID at home about 6 days ago and was negative. Past medical history, appointments, medications, allergies reviewed. Previous Medical History PAST MEDICAL HISTORY Diagnosis Date Abnormal glandular Papanicolaou smear of cervix 2003 Abn. Pap smear (cervix) Previous Surgical History PAST SURGICAL HISTORY Procedure Laterality Date DELIVERY ONLY 2005 , low cervical DELIVERY ONLY 2006 , low cervical DELIVERY ONLY 03/19/2011 , low transverse, with b.t.o. DILATION & CURETTAGE DX&/THER NONOBSTETRIC 12/23/2010 Dilation & curettageX2 LAPAROSCOPY W/RMVL ADNEXAL STRUCTURES Right 07/19/2021 Right oophorectomy for torsion and pain LAPS W/VAG HYSTERECT 250 GM/&RMVL TUBE&/OVARIES Bilateral 02/18/2017 [facility], bilateral salpingectomy [place] INCOMPLETE ANY TRIMESTER SURGICAL 11/27/2007 D&C w/ suction Family History FAMILY HISTORY Problem Relation Age of Onset Emphysema Paternal Grandmother smoker Patient Allergies ALLERGIES No Known Allergies Current Medications Current Outpatient Medications on File Prior to Visit Medication Sig busPIRone (BUSPAR) 10 mg tablet Take 1 tablet by mouth twice daily. buPROPion XL (WELLBUTRIN XL) 150 mg 24 hr tablet Take 1 tablet by mouth once daily. fluticasone (FLONASE) 50 mcg/actuation nasal spray Use 2 Sprays in each nostril once daily. Rinse mouth after use. No current facility-administered medications on file prior to visit. Social History Social History Tobacco Use Smoking status: Every Day Packs/day: 1 Types: Cigarettes Smokeless tobacco: Never Vaping Use Vaping Use: Never used Substance Use Topics Alcohol use: No Drug use: No REVIEW OF SYSTEMS: as above Reviewed relevant PMHx, PSHx, Social Hx, current medications and allergies. Review of Symptoms REVIEW OF SYSTEMS See HPI. All other systems are negative. EXAM: BP 110/64 (BP Site: Left Arm, BP Position: Sitting, BP Cuff Size: Large Adult) Pulse 68 Temp 37 C (98.6 F) Resp 14 LMP 01/27/2017 (Exact Date) SpO2 98% General Appearance: Well appearing, alert, in no acute distress, well-hydrated, well nourished.. Skin: Skin color, texture, turgor normal, no suspicious rashes or lesions. Head: Normocephalic, no masses, lesions, tenderness or abnormalities. Eyes: Anicteric sclera. Pupils are equally round and reactive to light. Extraocular movements are intact. . Ears: External ears normal, canals clear. Nose/Sinuses: Nares normal, septum midline, mucosa normal, no drainage or sinus tenderness, Positive findings: clear rhinorrhea. Oropharynx: Lips, mucosa, and tongue normal, teeth and gums normal, oropharynx normal. Lungs: Lungs clear to auscultation. No wheezing, rhonchi, rales.. Heart: RRR without murmur, gallop, or rubs. No ectopy. Health Maintenance List HEPATITIS B(1 of 3 - 3-dose series) Never done HEPATITIS C SCREENING Never done HPV TESTING due on 2018 PAP TESTING due on 10/16/2021 COVID-19 VACCINE(2 - Booster for Joshua series) due on 02/09/2024 PNEUMOCOCCAL(1 - PCV) due on 02/09/2024 INFLUENZA(1) due on 02/12/2023 DTAP,TDAP,TD(2 - Td or Tdap) due on 07/07/2028 HIV SCREENING Completed HPV VACCINE Aged Out ASSESSMENT/PLAN: 1. Bacterial sinusitis - ICD9: 473.9, 041.9, ICD10: J32.9, B96.89 (primary diagnosis) - Will begin treatment with Augmentin 875 mg PO BID for 10 days - The patient should also be given OTC decongestants prn, OTC cough and cold meds as needed, warm salt water gargles, throat lozenges and/or OTC throat spray as needed, and nasal saline gtts and suction prn for the first 5-7 days of treatment. - Supportive care with plenty of fluids, rest, and analgesia prn. - Follow up in 3-5 days if symptoms persist or worsen. - AMOXICILLIN 875 MG-POTASSIUM CLAVULANATE 125 MG TABLET 2. Sore throat - ICD9: 462, ICD10: J02.9 - Rapid Strep negative in the office today - antibiotic as written - Discussed supportive care treatment with fluids, rest and analgesia. - Call back if drooling, increased temperature, symptoms of dehydration and/or still sick in one week - AMOXICILLIN 875 MG-POTASSIUM CLAVULANATE 125 MG TABLET - STREP A MOLECULAR (POC) RTO as needed. Prescription instructions reviewed with patient as applicable. Potential red flag symptoms discussed with the patient. Reviewed appropriate action plan to take if red flag symptoms occur. Patient agreeable to treatment plan. Zay Trivedi APRN.SPONGE DIVER [address] [place] [address] documented in this encounter [facility] 10-27-2022 Note HNO ID: [id number] Author: Kala Morris APRN.CNP Service: ? Author Type: Nurse Practitioner Type: Progress Notes Filed: 10/27/2022 1:10 PM Note Text: Telemedicine Visit - Distance Health Virtual Visit Note Patient seen on [employer] video visit platform. Location of patient: [place] Regis Banuelos MD I have communicated my name and active licensure. The patient's identity and physical location were verified at the time of this visit. Either the patient or their legal product sales representative has been informed of the risks and benefits of -- and alternatives to -- treatment through a remote evaluation and consents to proceed with the evaluation remotely. History of Present Illness Kiki Salazar is a 32 year old year old female who presents for anxiety/depression follow up. Last month, depression was well controlled but had some ongoing anxiety. Buspar 5 mg twice daily was started. At this time, the patient states that her short fuse is better. But continues to have some anxiousness. Has some panic attacks. Can take a few hours to calm down. Occurring 2-3 times per week. No side effects of medication. States that again her depression is well controlled. She is working on getting him with psychiatry somewhere in [place], still needs to make the call. PAST MEDICAL HISTORY Diagnosis Date Abnormal glandular Papanicolaou smear of cervix 2003 Abn. Pap smear (cervix) PAST SURGICAL HISTORY Procedure Laterality Date DELIVERY ONLY 2005 , low cervical DELIVERY ONLY 2006 , low cervical DELIVERY ONLY 03/19/2011 , low transverse, with b.t.o. DILATION AND CURETTAGE DXAND/THER NONOBSTETRIC 12/23/2010 Dilation AND curettageX2 LAPAROSCOPY W/RMVL ADNEXAL STRUCTURES Right 07/19/2021 Right oophorectomy for torsion and pain LAPS W/VAG HYSTERECT 250 GM/ANDRMVL TUBEAND/OVARIES Bilateral 02/18/2017 [facility], bilateral salpingectomy [place] INCOMPLETE ANY TRIMESTER SURGICAL 11/27/2007 DANDC w/ suction FAMILY HISTORY Problem Relation Age of Onset Emphysema Paternal Grandmother smoker Social History Tobacco Use Smoking status: Every Day Packs/day: 1.00 Types: Cigarettes Smokeless tobacco: Never Vaping Use Vaping Use: Never used Substance Use Topics Alcohol use: No Drug use: No Current Outpatient Medications Medication Sig busPIRone (BUSPAR) 5 mg tablet Take 1 tablet by mouth twice daily. buPROPion XL (WELLBUTRIN XL) 150 mg 24 hr tablet Take 1 tablet by mouth once daily. fluticasone (FLONASE) 50 mcg/actuation nasal spray Use 2 Sprays in each nostril once daily. Rinse mouth after use. No current facility-administered medications for this visit. ALLERGIES No Known Allergies Video Exam (Examination performed via Video enabled technology) General appearance: Alert, oriented, pleasant, in NAD :Yes Ill appearing :No Lethargic appearing :No Respiratory distress :No ASSESSMENT/PLAN: 1. Depression with anxiety - ICD9: 300.4, ICD10: F41.8 -Depression is stable per the patient. We will continue Wellbutrin 150 mg once daily. Anxiety is somewhat improved in the ways of feeling like she does not have a short fuse anymore. But she is noticing some increased anxiousness. She states that initially when starting the BuSpar her anxiety was well controlled for 2 weeks until it became worse. I discussed that sometimes BuSpar can cause anxiety become worse before gets better. This is not the same with all individuals. This is just hypotheses. We will trial increasing BuSpar to 10 mg twice daily. Continue to work on getting in with psychiatry. Follow-up in 2 months, sooner if needed. - BUSPIRONE 10 MG TABLET PLAN: - Red flags discussed for need for in person care - All questions answered Kala Morris APRN.CNP If you let us know who your primary care provider is, we will send them a notification of today's visit through our electronic medical records system. Since not all providers have access to our notifications, we strongly encourage you to share the following record of today's visit with your primary care provider at your next visit. This will help in providing you the best care. If you do not have an established Primary Care physician and would like to continue care with a [facility] Virtual Primary Care physician, please ask your provider to place a Establish Primary Care order. Use [employer] to manage your care, wherever you are, 04/01, on your mobile device or computer. [employer] connects you to [employer] so you can access all your health information in one place and also schedule and request virtual appointments with primary care providers. [facility] 09-18-2022 Note HNO ID: [id number] Author: Kala Morris APRN.CNP Service: ? Author Type: Nurse Practitioner Type: Progress Notes Filed: 09/18/2022 9:07 AM Note Text: Telemedicine Visit - Distance Health Virtual Visit Note Patient seen on [employer] video visit platform. Location of patient: [place] Regis Banuelos MD I have communicated my name and active licensure. The patient's identity and physical location were verified at the time of this visit. Either the patient or their legal product sales representative has been informed of the risks and benefits of -- and alternatives to -- treatment through a remote evaluation and consents to proceed with the evaluation remotely. History of Present Illness Kiki Salazar is a 32 year old year old female who presents for medication follow up . Was started on Wellbutrin Exar 150 mg once daily for 6 weeks ago. This was for a diagnosis of depression with anxiety. At her last visit, the patient had mention she had a lot of external factors influencing this need to restart this medication including her 16-year-old daughter getting and delivering 3 months early. Also had mention some job stressors. Had complaints of sleeping too much, low motivation, fatigue, low moods, rumination, difficulty thought processing. At this time, she is doing okay. Some days are still harder than others. At this time, she still feels like she has a short fuse. She still has anxiety. Coworkers have noticed that her anxiety is actually gotten worse since starting the Wellbutrin. she agrees. She does feel that her low motivation, fatigue, excessive sleeping, hopelessness, has overall improved and has not present. Denies any ongoing depression. Denies any SI,HI. Again, has been on Celexa, Paxil, Effexor in the past which have either been ineffective or if had some type of side effect. She did have a counseling appointment recently and is doing well with that PAST MEDICAL HISTORY Diagnosis Date Abnormal glandular Papanicolaou smear of cervix 2003 Abn. Pap smear (cervix) PAST SURGICAL HISTORY Procedure Laterality Date DELIVERY ONLY 2005 , low cervical DELIVERY ONLY 2006 , low cervical DELIVERY ONLY 03/19/2011 , low transverse, with b.t.o. DILATION AND CURETTAGE DXAND/THER NONOBSTETRIC 12/23/2010 Dilation AND curettageX2 LAPAROSCOPY W/RMVL ADNEXAL STRUCTURES Right 07/19/2021 Right oophorectomy for torsion and pain LAPS W/VAG HYSTERECT 250 GM/ANDRMVL TUBEAND/OVARIES Bilateral 02/18/2017 [facility], bilateral salpingectomy [place] INCOMPLETE ANY TRIMESTER SURGICAL 11/27/2007 DANDC w/ suction FAMILY HISTORY Problem Relation Age of Onset Emphysema Paternal Grandmother smoker Social History Tobacco Use Smoking status: Every Day Packs/day: 1.00 Types: Cigarettes Smokeless tobacco: Never Vaping Use Vaping Use: Never used Substance Use Topics Alcohol use: No Drug use: No Current Outpatient Medications Medication Sig buPROPion XL (WELLBUTRIN XL) 150 mg 24 hr tablet Take 1 tablet by mouth once daily. fluticasone (FLONASE) 50 mcg/actuation nasal spray Use 2 Sprays in each nostril once daily. Rinse mouth after use. No current facility-administered medications for this visit. ALLERGIES No Known Allergies Video Exam (Examination performed via Video enabled technology) General appearance: Alert, oriented, pleasant, in NAD :Yes Ill appearing :No Lethargic appearing :No Respiratory distress :No ASSESSMENT/PLAN: 1. Depression with anxiety - ICD9: 300.4, ICD10: F41.8 -Depression is improved. Anxiety is more prominent. Has been on SSRIs and Effexor in the past with side effects or ineffectiveness. Trial adding BuSpar 5 mg twice daily to her regimen to focus on anxiety. I did discuss with her to consider getting in with psychiatry for further evaluation. She will work on this this month. If she is improved with BuSpar, we can always cancel psychiatry appointment. She will see me back in 4 to 6 weeks to reevaluate and potentially increase BuSpar dose. - BUSPIRONE 5 MG TABLET - BUPROPION XL 150 MG TAB PLAN: - Red flags discussed for need for in person care - All questions answered - VV in 4-6 weeks Kala Morris APRN.SPONGE [employer]IVER If you let us know who your primary care provider is, we will send them a notification of today's visit through our electronic medical records system. Since not all providers have access to our notifications, we strongly encourage you to share the following record of today's visit with your primary care provider at your next visit. This will help in providing you the best care. If you do not have an established Primary Care physician and would like to continue care with a [facility] Primary Care physician, please ask your provider to place a Establish Primary Care order. Use [facility] to manage your care, wherever you are, 04/01, on your (more content not included)... [facility] 07-17-2022 History of Present illness Narrative Cc: anxiety and depression. No Internet access at our office today, dictating through tolingo. HPI: patient is here to follow up on anxiety and depression. States that it has been present for nearly 12 years. She was previously on wellbutrin XL 150 mg but never followed up. Last time she took his medication was February 2022. Since our last visit, patient has a lot going on. This includes 16-year-old daughter getting pregna nt and delivering three months early. Dealing with NICU. Also job stressors and home stressors. She states that she sleeps too much, has low motivation, fatigue, low moods. She denies any SI/HI. She has anxiety, rumination, difficulty with thought processing. At this time she has a counseling appointment in two weeks. She would like to resume Wellbutrin XL. Exam: General: oriented, appearing well. Neck: no thyroid Enlargem ent Lungs: no cough, wheezing, rhonchi, or rakes Heart: normal rhythm, normal S1, S2. Vitals: BP 108/75, HR 75, Resp 18. A/P: Anxiety and depression - Acute on chronic condition. Continue with plan to see counselor. Start Wellbutrin XL 150 mg. Discussed red flags, expectations of medication, potential side effects. Follow up in 4-6 weeks virtually. Kala Morris CNP documented in this encounter [facility] documented as of this encounter (statuses as of 07/17/2022) [facility]09-07-2012 History of Past illness Narrative* Problem Noted Date Diagnosed Date Resolved Date Condyloma acuminata 02/19/2012 10/17/19 17 Decreased movements, a ffecting management of mother, antepartum 12/26/2010 012 Previous delivery, antepartum condition or complication 12/26/2010 02/19/2012 Supervision of other high-ri sk (V23.89) 12/26/2010 02/19/2012 Supervision of other high-ri sk (V23.89) 09/12/2010 12/26/2010 Previous section 08/15/2010 Unspecified symptom associat ed with female genital organs 12/25/2009 10/16/2016 Abdominal pain, generalized 12/25/2009 10/16/2016 Supervision of other high-ri sk (V23.89) 11/21/2007 12/01/2007 Chlamydia trachomatis infect ion of lower genitourinary sites 11/21/2007 07/02/2009 Supervision of other normal 03/11/2006 10/08/2006 documented as of this encounter (statuses as of 02/08/2023) [facility] History of Past illness Narrative* Problem Noted Date Diagnosed Date Resolved Date Condyloma acuminata 02/19/2012 10/17/19 17 Decreased movements, a ffecting management of mother, antepartum 12/26/2010 012 Previous delivery, antepartum condition or complication 12/26/2010 02/19/2012 Supervision of other high-ri sk (V23.89) 12/26/2010 02/19/2012 Supervision of other high-ri sk (V23.89) 09/12/2010 12/26/2010 Previous section 08/15/2010 Unspecified symptom associat ed with female genital organs 12/25/2009 10/16/2016 Abdominal pain, generalized 12/25/2009 10/16/2016 Supervision of other high-ri sk (V23.89) 11/21/2007 12/01/2007 Chlamydia trachomatis infect ion of lower genitourinary sites 11/21/2007 07/02/2009 Supervision of other normal 03/11/2006 10/08/2006 documented as of this encounter (statuses as of 04/15/2023) [facility] History of Past illness Narrative* Problem Noted Date Diagnosed Date Resolved Date Condyloma acuminata 02/19/2012 10/17/19 17 Decreased movements, a ffecting management of mother, antepartum 12/26/2010 012 Previous delivery, antepartum condition or complication 12/26/2010 02/19/2012 Supervision of other high-ri sk (V23.89) 12/26/2010 02/19/2012 Supervision of other high-ri sk (V23.89) 09/12/2010 12/26/2010 Previous section 08/15/2010 Unspecified symptom associat ed with female genital organs 12/25/2009 10/16/2016 Abdominal pain, generalized 12/25/2009 10/16/2016 Supervision of other high-ri sk (V23.89) 11/21/2007 12/01/2007 Chlamydia trachomatis infect ion of lower genitourinary sites 11/21/2007 07/02/2009 Supervision of other normal 03/11/2006 10/08/2006 documented as of this encounter (statuses as of 07/29/2023) [facility] Diagnosis Depression with anxiety- Primary Dysthymic disorder [facility] Diagnosis Bacterial sinusitis- Primary Unspecified sinusitis (chronic) Sore throat Acute pharyngitis [facility] Diagnosis Lower resp. tract infection- Primary Other diseases of respiratory system, not elsewhere classified [facility] Diagnosis Depression with anxiety Dysthymic disorder documented in this encounter [facility] Summary Purpose Family History No Family History Records FoundNo Family History Records FoundNo Family History Records Found Advance Directives No Advanced Directives Records FoundNo Advanced Directives Records FoundNo Advanced Directives Records Found Additional Source Comments INFORMATION SOURCE (unrecogn ized section and content) DATE CREATED AUTHOR AUTHOR'S ORGANIZ ATION 11/09/2019 [facility] ([place]) DATE CREATED AUTHOR AUTHOR'S ORGANIZ ATION 2023 [facility] Source Comments (unrecognize d section and content) In the event this informatio n is protected by the Federal Confidentiality of Alcohol and Drug Abuse Patient Records regulations: The Federal rules restrict any use of the information to criminally investigate or prosecute any alcohol or drug abuse patient.[facility] event this information is protected by the Federal Confidentiality of Alcohol and Drug Abuse Patient Records regulations: The Federal rules restrict any use of the information to criminally investigate or prosecute any alcohol or drug abuse patient.[facility] event this information is protected by the Federal Confidentiality of Alcohol and Drug Abuse Patient Records regulations: The Federal rules restrict any use of the information to criminally investigate or prosecute any alcohol or drug abuse patient.[facility] event this information is protected by the Federal Confidentiality of Alcohol and Drug Abuse Patient Records regulations: The Federal rules restrict any use of the information to criminally investigate or prosecute any alcohol or drug abuse patient.[facility] Reason for Visit (unrecogniz ed section and content) Reason Comments tonsiil swollen Took at home covid t est last Wednesday . Been sick for 4 weeks, looses voice, cough, sinus pressure, head ache , hard to hear, dizziness, had some vomiting one day , fever. Reason Comments Cough Sinus/chest congesti on, drainage x 1 week Reason Comments Medication Follow-up Care Teams (unrecognized sec tion and content) [employer] Relationship Specialty Start Date End Date Regis Banuelos MD [address] [place] [address] PCP - General Family Medicine 07/08/17 [employer] Relationship Specialty Start Date End Date Regis Banuelos MD [address] [place], [place] [id number] PCP - General Family Medicine 07/08/17 [employer] Relationship Specialty Start Date End Date Regis Banuelos MD [address] [place], [place] [id number] PCP - General Family Medicine 07/08/17 FOR RECORDS PERTAINING TO PATIENTS WHO ARE OR HAVE BEEN ENROLLED IN A CHEMICAL DEPENDENCY/SUBSTANCEABUSE PROGRAM, SOME INFORMATION MAY BE OMITTED. This clinical summary was aggregated from multiple sources. Caution should be exercised in using it in the provision of clinical care. This summary normalizes information from multiple sources, and as a consequence, information in this document may materially change the coding, format and clinical context of patient data. In addition, data may be omitted in some cases. CLINICAL DECISIONS SHOULD BE BASED ON THE PRIMARY CLINICAL RECORDS. [facility] [email or web address] [facility]. provides no warranty or guarantee of the accuracy or completeness of information in this document.
[2023-08-28 12:18] VITALS: BP 109/50; PULSE 70; RESP 20; TEMP 36.7; O2SAT 98
== END 2023-08-28 12:32 | disposition home or self-care (01) ==
PROVIDERS: Physician Assistant; Emergency Provider Emergency Medicine; PCP Family Medicine; Visit Provider Emergency Medicine
DX: R07.9 Chest pain, unspecified (principal); F17.290 Nicotine dependence, other tobacco product, uncomplicated
CPT/HCPCS: 71045; 80048; 84484; 85025; 93005; 99283; A4216

== ENCOUNTER 2023-12-16 16:22 | Emergency (ER) | payer OTHER, SELFPAY ==
[2023-12-16 16:23] VITALS: BP 142/82; PULSE 101; RESP 18; TEMP 36.3; O2SAT 99
--- NOTE | 2023-12-16 16:59 | ED.VIS.LOWEX ---
HPI <STANLEY Delatorre - Last Filed: 12/16/23 18:18> History of Present Illness Chief Complaint: Lower Extremity Injury Narrative Narrative: Patient presenting today with pain to her right lower extremity that started this afternoon after she woke up from a nap. She tried to get out of bed and noticed pain to her anterior thigh and anterior lower leg. She denies any injury to the area or recent exercise/stretching/exertion. She denies any pain to the back of her leg or history of blood clots/recent surgery/travel/immobilization. PFSH <STANLEY Delatorre - Last Filed: 12/16/23 18:18> PFSH Medical History Right lower quadrant pain Abnormal Pap smear of cervix Endometriosis Right-sided back pain Home Medications ?Medication ?Instructions ?Recorded ?Last Taken ?Type ibuprofen 400 mg tablet 800 mg (2 x 400 mg) PO Q8H PRN PRN 02/19/17 Unknown Rx Pain ##30 oxycodone-acetaminophen 5 mg-325 1 tab PO Q6H PRN PRN Pain 3 days 07/19/21 Unknown Rx mg tablet #12 TABLETS Allergy/AdvReac Type Severity Reaction Status Date / Time No Known Allergies Allergy Verified 12/16/23 16:23 Surgical History S/P laparoscopic assisted vaginal hysterectomy (LAVH) H/O dilation and curettage Previous section Social History Smoking Status: Current every day smoker tobacco type: e-cigarettes ROS <STANLEY Delatorre - Last Filed: 12/16/23 18:18> ROS ED Constitutional Constitutional ED: Denies chills or fever(s) Cardiovascular Cardiovascular: Denies chest pain Respiratory/Chest Respiratory/Chest: Denies dyspnea Gastrointestinal Gastrointestinal: Denies abdominal pain, nausea or vomiting Musculoskeletal Musculoskeletal: Reports myalgias Integumentary Denies rash Neurologic Neurologic: Denies paresthesias or weakness EXAM <STANLEY Delatorre - Last Filed: 12/16/23 18:18> Physical Exam Const Vital Signs: 12/16/23 16:23 Temperature 97.3 F L Temperature Source Temporal Pulse Rate 101 H Respiratory Rate 18 Blood Pressure 142/82 H Blood Pressure Mean 102 Pulse Ox 99 Oxygen Delivery Method Room Air Positive well nourished, well developed and no apparent distress General Appearance ED: well developed HEENT Reports normocephalic and head/scalp atraumatic Mouth ED: Yes moist mucous membranes normal Eyes PERRL and EOMs intact bilaterally Neck full ROM and supple Chest Wall inspection of chest normal Resp normal respiratory effort and clear to auscultation bilaterally Cardio regular rate and regular rhythm Back/Spine normal ROM and normal to inspection Extremity normal to inspection and full ROM Extremity Narrative: No ecchymosis or swelling to the right lower extremity, right DP pulse 2+, good capillary refill, sensation intact. Negative Homans' sign on the right, no palpable cord. Neuro oriented x3, CN's II-XII intact bilaterally, moves all extremities, no focal motor deficits and no sensory deficits noted Sensorium / Orientation: awake and alert Psych mental status grossly normal and thought process normal Skin no rashes or lesions noted and no wounds <Dr. Darrin Vazquez MD - Last Filed: 12/16/23 17:39> Physical Exam Const Vital Signs: 12/16/23 16:23 Temperature 97.3 F L Temperature Source Temporal Pulse Rate 101 H Respiratory Rate 18 Blood Pressure 142/82 H Blood Pressure Mean 102 Pulse Ox 99 Oxygen Delivery Method Room Air MDM <STANLEY Delatorre - Last Filed: 12/16/23 18:18> [facility] Narrative Medical decision making narrative: Patient presenting with a painful right lower extremity that started this afternoon. Her pain is anterior and only present with patient. This does sound muscular in etiology. She has been having muscle spasms. She did work a long stretch of days where she was working 15 hours at a time. Examination is not consistent with a DVT. Patient given ibuprofen for here for pain. RICE instructions were discussed, she has been instructed to stay well-hydrated, she can alternate Tylenol and ibuprofen as needed for pain. She is to follow-up with her PCP if this persists. She will be discharged home in stable condition and is comfortable with plan. I have personally performed a face to face assessment of the patient and have reviewed the ERIC Note. I performed a substantive portion of the visit including all aspects of the following. My [place] findings include: History is 33-year-old female took a nap today when she woke up she was having intermittent thigh muscle pain. No fall injury or trauma. No fever or chills. No prior history of DVT or PE. No recent travel surgery or immobilization. No prior surgery to the leg or any problems with her leg. Exam is [well-appearing 33-year-old female. Vital signs stable afebrile. H EENT exam normal. Lungs clear. Heart regular rhythm no murmur. Abdomen soft nontender. 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 Dorsi plantarflexion intact. Both lower extremities are normal in appearance normal thighs normal hamstrings nontender. No redness or warmth. No discoloration. No bruising. Normal flexion extension of both hips and knees ankles. Calves are nontender without edema. The joints are not swollen, tender or red. Very strong equal and symmetrical DP pulses. The pain she describes is consistent with a muscle spasm.] Medical Decision Making [diagnosis is muscle spasm. Patient I discussed labs and x-rays will be of any benefit she is comfortable with that. She has been working like 15 hours a day. She will increase her fluid intake electrolytes. Tylenol Motrin. Follow-up with presenting problem.] Other additions or changes: [None] <Dr. Darrin Vazquez MD - Last Filed: 12/16/23 17:39> [facility] Narrative Medical decision making narrative: Patient presenting with a painful right lower extremity that started this afternoon. Her pain is anterior and only present with patient. This does sound muscular in etiology. Examination is not consistent with a DVT. Patient given ibuprofen for here for pain. I have personally performed a face to face assessment of the patient and have reviewed the ERIC Note. I performed a substantive portion of the visit including all aspects of the following. My [place] findings include: History is 33-year-old female took a nap today when she woke up she was having intermittent thigh muscle pain. No fall injury or trauma. No fever or chills. No prior history of DVT or PE. No recent travel surgery or immobilization. No prior surgery to the leg or any problems with her leg. Exam is [well-appearing 33-year-old female. Vital signs stable afebrile. H EENT exam normal. Lungs clear. Heart regular rhythm no murmur. Abdomen soft nontender. 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 Dorsi plantarflexion intact. Both lower extremities are normal in appearance normal thighs normal hamstrings nontender. No redness or warmth. No discoloration. No bruising. Normal flexion extension of both hips and knees ankles. Calves are nontender without edema. The joints are not swollen, tender or red. Very strong equal and symmetrical DP pulses. The pain she describes is consistent with a muscle spasm.] Medical Decision Making [diagnosis is muscle spasm. Patient I discussed labs and x-rays will be of any benefit she is comfortable with that. She has been working like 15 hours a day. She will increase her fluid intake electrolytes. Tylenol Motrin. Follow-up with presenting problem.] Other additions or changes: [None] History & Record Review Discussion w/independent historian: Patient Discharge Plan Triage Chief Complaint: Lower Extremity Injury ED Midlevel Provider: Ese Seaman ED Provider: Darrin Vazquez Dx/Rx/DC Orders Clinical Impression: Right leg pain, Muscle spasm Instructions: ED Leg Spasm Prescriptions: No Action ibuprofen 400 MG tablet 800 mg PO Q8H PRN PRN (Reason: Pain) Qty: 30 0RF oxycodone-acetaminophen 1 TABLET tablet 1 tab PO Q6H PRN PRN (Reason: Pain) 3 Days Qty: 12 0RF Primary Care Provider: Tristen Cantu Referrals: Tristen Cantu MD [Primary Care Provider] - 5-7 Days Activity Restrictions/Additional Instructions: Follow-up with your PCP if no improvement of your symptoms. You can alternate Tylenol and ibuprofen as needed for pain. Print Language: Slovenian Disposition Disposition: Home, Self Care Discharge Date/Time: 12/16/23 17:39
[2023-12-16] MEDS: Ibuprofen 600 MG Tablet PO (17:19)
== END 2023-12-16 17:39 | disposition home or self-care (01) ==
PROVIDERS: Emergency Provider Emergency Medicine; PCP Family Medicine; Visit Provider Emergency Medicine
DX: M79.604 Pain in right leg (principal); M62.838 Other muscle spasm; F17.290 Nicotine dependence, other tobacco product, uncomplicated
CPT/HCPCS: 99282